=== PATIENT | male | born 1965 | race Caucasian/White ===

== ENCOUNTER 2020-04-29 07:43 | Outpatient (REF) | payer OTHER, SELFPAY | END 2020-04-29 07:44 | disposition home or self-care (01) | LOC: HO.LAB 07:43 | PROVIDERS: Visit Provider Internal Medicine | DX: Z20.828 Contact with and (suspected) exposure to other viral communicable diseases (principal) | CPT/HCPCS: C9803; U0003 ==

== ENCOUNTER → 2020-12-09 08:17 | Outpatient (BNVA) | payer OTHER, SELFPAY | PROVIDERS: PCP Internal Medicine Geriatric Medicine; Referring Provider Internal Medicine Geriatric Medicine; Visit Provider Surgery | DX: K64.5 Perianal venous thrombosis (principal) | CPT/HCPCS: 46600 ==

== ENCOUNTER 2021-05-24 11:37 | Outpatient (REF) | payer OTHER, SELFPAY ==
[2021-05-24 12:54] LABS: Influenza A PCR NEGATIVE (Negative); Influenza B PCR NEGATIVE (Negative); Resp Syncy Virus RNA Qual PCR NEGATIVE (Negative); SARS COV2 PCR INHOUSE NEGATIVE (Negative)
== END 2021-05-24 11:38 | disposition home or self-care (01) ==
LOC: HO.LNP 11:37
PROVIDERS: Visit Provider Physician Assistant
DX: Z20.822 Contact with and (suspected) exposure to COVID-19 (principal); J06.9 Acute upper respiratory infection, unspecified
CPT/HCPCS: 0241U

== ENCOUNTER 2021-08-28 09:14 | Outpatient (REF) | payer OTHER, SELFPAY ==
[2021-08-28 11:24] LABS: Hematocrit 42.9 % (42.0-52.0); Hemoglobin 14.3 g/dl (14.0-18.0); Mean Corpuscular HGB Conc 33.3 g/dl (31.0-36.0); Mean Corpuscular Volume 89.9 fL (80.0-98.0); Platelet Count 239 X10*3/uL (160-400); Red Blood Count 4.77 X10*6/uL (4.60-5.80); Red Cell Distribution Width 13.1 % (11.0-16.0)
[2021-08-28 11:34] LABS: Estimated Average Glucose 128 mg/dL; Hemoglobin A1c % 6.1 %
[2021-08-28 11:45] LABS: Alanine Aminotransferase 34 U/L (0-40); Albumin Level 4.5 g/dL (3.5-5.0); Alkaline Phosphatase 75 U/L (39-117); Anion Gap 13 (12-20); Aspartate Amino Transferase 25 U/L (5-37); Bilirubin Direct 0.3 mg/dL (0.0-0.5); Bilirubin Total 0.7 mg/dL (0.0-1.0); Blood Urea Nitrogen 16 mg/dL (9-16); Calcium 9.5 mg/dL (8.4-10.2); Carbon Dioxide 25 mmol/L (22-29); Chloride 108 mmol/L (96-108); Cholesterol 178 mg/dL; Estimated Glomerular Filt Rate > 60; Glucose Random 117 mg/dL (60-115); HDL Cholesterol 53 mg/dL; LDL Cholesterol Calculated 108 mg/dl; Potassium 4.2 mmol/L (3.3-5.1); Sodium 142 mmol/L (135-145); Total Protein 7.2 g/dL (6.5-8.0); Triglycerides 87 mg/dL
[2021-08-28 12:15] LABS: Prostate Specific Antigen 0.32 ng/mL (<0.05-4.0)
== END 2021-08-28 09:15 | disposition home or self-care (01) ==
LOC: HO.HMGCLDS 09:14
PROVIDERS: Visit Provider Internal Medicine Geriatric Medicine
DX: Z12.5 Encounter for screening for malignant neoplasm of prostate (principal); Z13.1 Encounter for screening for diabetes mellitus; Z13.220 Encounter for screening for lipoid disorders
CPT/HCPCS: 36415; 80048; 80061; 80076; 83036; 84153; 85027

== ENCOUNTER 2022-12-21 09:52 | Outpatient (REF) | payer OTHER, SELFPAY ==
[2022-12-21 11:22] LABS: MANUAL DIFF FLAG NO
[2022-12-21 11:31] LABS: Basophils Absolute Auto 0.1 X10*3/uL (0.0-0.2); Basophils Percent Auto 0.6 % (0-2); Eosinophils Absolute Auto 0.2 X10*3/uL (0.0-0.4); Eosinophils Percent Auto 1.8 % (0-4); Hematocrit 44.1 % (42.0-52.0); Hemoglobin 14.8 g/dl (14.0-18.0); Imm Gran Abs Auto 0.03 X10*3/uL (0.00-0.03); Imm Gran Pct Auto 0.3 % (0.0-0.4); Lymphocytes Absolute Auto 2.7 X10*3/uL (1.2-4.9); Lymphocytes Percent Auto 30.4 % (20-40); Mean Corpuscular HGB Conc 33.6 g/dl (31.0-36.0); Mean Corpuscular Volume 89.5 fL (80.0-98.0); Mean Platelet Volume 9.2 fL (9.4-12.4); Monocytes Absolute Auto 0.7 X10*3/uL (0.1-1.2); Monocytes Percent Auto 7.7 % (2-11); Neutrophils Absolute Auto 5.2 x10*3/uL (2.0-8.3); Neutrophils Percent Auto 59.2 % (45-73); Platelet Count 225 X10*3/uL (160-400); Red Blood Count 4.93 X10*6/uL (4.60-5.80); Red Cell Distribution Width 12.9 % (11.0-16.0); White Blood Count 8.7 X10*3/uL (4.8-10.8)
[2022-12-21 12:31] LABS: Alanine Aminotransferase 21 U/L (0-40); Albumin Level 4.4 g/dL (3.5-5.0); Alkaline Phosphatase 83 U/L (39-117); Anion Gap 14 (12-20); Aspartate Amino Transferase 18 U/L (5-37); Bilirubin Total 0.9 mg/dL (0.0-1.0); Blood Urea Nitrogen 14 mg/dL (9-16); Calcium 9.5 mg/dL (8.4-10.2); Carbon Dioxide 24 mmol/L (22-29); Chloride 107 mmol/L (96-108); Cholesterol 194 mg/dL; Estimated Glomerular Filt Rate > 60; Glucose Random 107 mg/dL (60-115); HDL Cholesterol 61 mg/dL; LDL Cholesterol Calculated 117 mg/dl; Potassium 4.1 mmol/L (3.3-5.1); Sodium 141 mmol/L (135-145); Total Protein 7.3 g/dL (6.5-8.0); Triglycerides 84 mg/dL
[2022-12-21 12:40] LABS: Prostate Specific Antigen 0.37 ng/mL (<0.05-4.0)
== END 2022-12-21 09:53 | disposition home or self-care (01) ==
LOC: HO.HHCL 09:52
PROVIDERS: Visit Provider Internal Medicine Geriatric Medicine
DX: Z00.00 Encounter for general adult medical examination without abnormal findings (principal); Z12.5 Encounter for screening for malignant neoplasm of prostate; Z13.1 Encounter for screening for diabetes mellitus; Z13.220 Encounter for screening for lipoid disorders
CPT/HCPCS: 36415; 80053; 80061; 84153; 85025

== ENCOUNTER 2023-07-22 08:55 | Outpatient (AMB) | payer OTHER, SELFPAY ==
[2023-07-22 08:56] VITALS: BP 118/80; PULSE 51; TEMP 36.7; O2SAT 98; BMI 31.1
--- NOTE | 2023-07-22 08:56 | MHC.OFFWIV ---
Intake Vital Signs 07/22/23 08:56 Height 5 ft 6 in Weight 193 lb BMI 31.1 BP 118/80 Blood Pressure Location Rt brachial Position Sitting Pulse 51 Pulse Source Pulse Oximeter Temp 98.0 F Temp Source Oral Pulse Oximetry (%) 98 Intake Visit Reasons: EST/sinus pressure X 3 days Intake Note: Pt is her today c/o sinus congestion and pressure x3 days Patient Tobacco Use Status: Never used Tobacco Allergies No Known Allergies [No Known Allergies*] Allergy (Verified 07/22/23 08:58) Do you need a note to return to daycare/school/sports/work: Yes HPI EST/sinus pressure X 3 days HPI Details Patient is a 58-year-old male who comes to the walk-in clinic complaining nasal congestion, sore throat and starting to develop sinus pressure for the last 3 days. He reports COVID testing was negative. No report of fever chills, headache or dizziness or vertigo, weakness, myalgias or malaise, nausea vomiting or diarrhea, ear pain or other significant associated symptoms PFSH Medical History Thrombosed external hemorrhoids Social History Alcohol intake: never Patient Tobacco Use Status: Never used Tobacco Review of Systems Const All systems reviewed & are unremarkable except as noted in HPI and below Physical Exam Vital Signs: Last Vital Signs Temp 98.0 F 07/22/23 08:56 Pulse 51 07/22/23 08:56 BP 118/80 07/22/23 08:56 Pulse Ox 98 07/22/23 08:56 BMI result Body Mass Index 31.1 Const General: cooperative, healthy appearing, comfortable, alert, awake, Physically active and well groomed; No anxious, diaphoretic, ill appearing, intoxicated appearing, poor hygiene or tired appearing Nutritional Appearance: average body habitus Limitations: no limitations HEENT Head: Yes normal to inspection, Yes normocephalic and Yes atraumatic Ears: hearing grossly normal bilaterally, external ears normal, TM's normal bilaterally and EAC's normal General nose exam: Normal external nose present, Normal septum present, Abnormal mucous membranes and turbinates present and Nasal discharge present Face and sinus: Yes normal facial exam and Yes face symmetric Mouth: Normal oral and palatal mucosa present, lip normal and tongue normal Throat: Yes posterior oropharynx normal, No peritonsillar mass, No postnasal drainage, No uvular edema and No cobblestoning Eyes General: appearance normal, both eyes and all related structures Neck Neck: Yes normal visual inspection, Yes full ROM, Yes no lymphadenopathy, Yes trachea midline, Yes supple and No anterior neck swelling Chest Chest palpation & inspection: normal palpation of entire chest wall Resp Effort & Inspection: normal respiratory effort Cardio Rate: regular rate Skin Other: Good color, warm and dry Psych Appearance: grossly normal Mental Status: mental status grossly normal Speech and movement: Normal speech and movement present Affect: normal affect Attitude: cooperative Thought process: Normal thought process present Insight: Good insight present (Psych) Judgement: Good judgement present (Psych) Assessment & Plan Assessment & Plan (1) URI (upper respiratory infection): Code(s): J06.9 - Acute upper respiratory infection, unspecified Qualifiers: URI type: unspecified viral URI Qualified Code(s): J06.9 - Acute upper respiratory infection, unspecified Plan: Patient 3 days into viral upper respiratory infection, nasal congestion is improving, as is postnasal drip and sore throat. Respiratory swab pending to rule out flu COVID and RSV, although home COVID test was negative. He is starting to feel some sinus pressure developing however, and apparently does have a history of bacterial sinusitis, so I wrote him for a course of azithromycin per jis requestm to take in case symptoms start to worsen, or do not improve. He knows to get adequate fluid intake and other supportive measures discussed. Note given to excuse from work yesterday. He will follow up if symptoms persist or worsen as needed Orders: Orders SARS-CoV2/FLU/RSV 07/22/23 R05.9 - Cough, unspecified Medications: New azithromycin take 500 mg today (day 1), then 250 mg for 4 days (days 2-5) PO 6 tabs 0RF Coding Level of Care Code Est Pt Level 4 (65903) Diagnoses Viral upper respiratory tract infection J06.9 URI type: unspecified viral URI
== END 2023-07-22 12:56 | disposition home or self-care (01) ==
PROVIDERS: Visit Provider Physician Assistant Medical
DX: J06.9 Acute upper respiratory infection, unspecified (principal)
CPT/HCPCS: 99051; 99214

== ENCOUNTER 2023-07-22 09:24 | Outpatient (REF) | payer OTHER, SELFPAY ==
[2023-07-22 12:38] LABS: Influenza A PCR NEGATIVE (Negative); Influenza B PCR NEGATIVE (Negative); Resp Syncy Virus RNA Qual PCR NEGATIVE (Negative); SARS COV2 PCR INHOUSE NEGATIVE (Negative)
== END 2023-07-22 09:25 | disposition home or self-care (01) ==
LOC: HO.LAB 09:24
PROVIDERS: Visit Provider Physician Assistant Medical
DX: Z11.52 Encounter for screening for COVID-19 (principal); Z20.822 Contact with and (suspected) exposure to COVID-19; R05.9 Cough, unspecified
CPT/HCPCS: 0241U

== ENCOUNTER 2023-12-05 10:17 | Outpatient (REF) | payer OTHER, SELFPAY ==
[2023-12-05 11:43] LABS: MANUAL DIFF FLAG NO
[2023-12-05 11:58] LABS: Basophils Absolute Auto 0.1 X10*3/uL (0.0-0.2); Basophils Percent Auto 0.8 % (0-2); Eosinophils Absolute Auto 0.1 X10*3/uL (0.0-0.4); Eosinophils Percent Auto 1.4 % (0-4); Hemoglobin 14.2 g/dl (14.0-18.0); Imm Gran Abs Auto 0.02 X10*3/uL (0.00-0.03); Imm Gran Pct Auto 0.3 % (0.0-0.4); Lymphocytes Percent Auto 31.2 % (20-40); Mean Corpuscular HGB Conc 34.6 g/dl (31.0-36.0); Mean Corpuscular Hemoglobin 30.8 pg (27.0-33.0); Mean Corpuscular Volume 88.9 fL (80.0-98.0); Mean Platelet Volume 9.3 fL (9.4-12.4); Monocytes Absolute Auto 0.5 X10*3/uL (0.1-1.2); Monocytes Percent Auto 7.7 % (2-11); Neutrophils Absolute Auto 3.8 x10*3/uL (2.0-8.3); Neutrophils Percent Auto 58.6 % (45-73); Platelet Count 220 X10*3/uL (160-400); Red Blood Count 4.61 X10*6/uL (4.60-5.80); Red Cell Distribution Width 12.8 % (11.0-16.0); White Blood Count 6.5 X10*3/uL (4.8-10.8)
[2023-12-05 12:36] LABS: Alanine Aminotransferase 22 U/L (0-40); Albumin Level 4.3 g/dL (3.5-5.0); Alkaline Phosphatase 73 U/L (39-117); Anion Gap 11 (12-20); Aspartate Amino Transferase 22 U/L (5-37); Bilirubin Total 0.7 mg/dL (0.0-1.0); Blood Urea Nitrogen 15 mg/dL (9-16); Carbon Dioxide 26 mmol/L (22-29); Chloride 109 mmol/L (96-108); Cholesterol 180 mg/dL (<200); Estimated Glomerular Filt Rate > 60; Glucose Random 104 mg/dL (60-115); HDL Cholesterol 52 mg/dL (>40); LDL Cholesterol Calculated 112 mg/dL (<100); Potassium 3.8 mmol/L (3.3-5.1); Sodium 142 mmol/L (135-145); Triglycerides 83 mg/dL (<150); ~HepC Num1 0.07 S/CO (0.00-0.79); ~Hepatitis C Antibody Nonreactive (Nonreactive)
[2023-12-05 12:37] LABS: Prostate Specific Antigen 0.34 ng/mL (<0.05-4.0)
== END 2023-12-05 10:18 | disposition home or self-care (01) ==
LOC: HO.HHCL 10:17
PROVIDERS: Visit Provider Internal Medicine Geriatric Medicine
DX: Z00.00 Encounter for general adult medical examination without abnormal findings (principal); Z13.1 Encounter for screening for diabetes mellitus; Z13.220 Encounter for screening for lipoid disorders; Z12.5 Encounter for screening for malignant neoplasm of prostate; Z11.59 Encounter for screening for other viral diseases
CPT/HCPCS: 36415; 80053; 80061; 84153; 85025; 86803

== ENCOUNTER 2023-12-25 07:57 | Outpatient (AMB) | payer OTHER, SELFPAY ==
--- NOTE | 2023-12-25 07:59 | MHC.OFFWIV ---
Intake Vital Signs 12/25/23 08:00 Height 5 ft 6 in Weight 192 lb BMI 31.0 BP 134/86 Blood Pressure Location Rt brachial Position Sitting Pulse 64 Pulse Source Pulse Oximeter Temp 98.7 F Temp Source Oral Pulse Oximetry (%) 98 Oxygen Delivery Method Room Air Intake Visit Reasons: EP Lower Back pain Intake Note: pt here c/o lower back pain. Started Monday Patient Tobacco Use Status: Never used Tobacco Allergies No Known Allergies [No Known Allergies*] Allergy (Verified 12/25/23 08:00) Do you need a note to return to daycare/school/sports/work: Yes HPI HPI Comments History of Present Illness Details Patient presents to the walk-in today for sick visit Reports lower back pain for last 3 days Injured back when moving from the couch, pain has persisted Has taken Tylenol, ibuprofen, cyclobenzaprine and applied lidocaine patches all without improvement his pain Denies radiation of the pain down either lower extremity Denies numbness, weakness, tingling of either lower extremity Pain is worse with movement and in the morning Exacerbated by movement, forward flexion and twisting [facility] Medical History Thrombosed external hemorrhoids Social History Alcohol intake: never Patient Tobacco Use Status: Never used Tobacco Review of Systems Const All systems reviewed & are unremarkable except as noted in HPI and below Physical Exam Vital Signs: Last Vital Signs Temp 98.7 F 12/25/23 08:00 Pulse 64 12/25/23 08:00 BP 134/86 12/25/23 08:00 Pulse Ox 98 12/25/23 08:00 Oxygen Delivery Method Room Air 12/25/23 08:00 BMI result Body Mass Index 31.0 General: awake, alert, oriented. Answers questions appropriately. Fully engaged in examination. Skin: warm, dry, intact HEENT: Normocephalic. Hearing intact. Cardiac: External chest normal in appearance. Respiratory: No cough, audible wheezing or stridor. Abdomen: without gross distension. MS: No obvious swelling or deformities. Able to stand on bilateral tiptoes and bilateral heels.? Able to transition from sit to stand unassisted. Ambulates with bilaterally normal heel strike and toe off SLR negative bilaterally Facet loading positive bilaterally Tender to palpation midline lumbar vertebrae and lumbar paraspinal muscles Pain with forward flexion at 70 degrees, extension to 10 degrees Neurological: Oriented to person, place, time and situation. Thought process intact. No gait abnormalities appreciated. Psychiatric: Appropriate mood and affect. Good judgment and insight. Results Reviewed Results Reviewed: X-ray ordered and independently reviewed: No fracture. Age-related changes Assessment & Plan Assessment & Plan (1) Lower back pain: Code(s): M54.50 - Low back pain, unspecified Plan X-ray ordered and independently reviewed: No fracture. Age-related changes Methocarbamol 500 mg p.o. 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 No driving while taking this medication. Diclofenac 50 mg p.o. b.i.d. patient advised on cautions for use, do not take with any other nonsteroidal anti-inflammatory medications Patient declined IM Toradol Work note provided All questions and concerns were answered, patient agrees with the plan. Follow up with PCP or return here for any new or worsening symptoms Orders: Orders XR lumbar spine 4V min Today M54.50 - Low back pain, unspecified Medications: New methocarbamol no driving while taking this medication. may cause drowsiness. do not take with alcohol or other manager heart failure depressants. 500 mg PO TID 30 tabs 0RF diclofenac potassium 50 mg PO BID 60 tabs 0RF Coding Level of Care Code Est Pt Level 4 (38734) Diagnoses Lower back pain M54.50
[2023-12-25 08:00] VITALS: BP 134/86; PULSE 64; TEMP 37.1; O2SAT 98; BMI 31.0
== END 2023-12-25 08:29 | disposition home or self-care (01) ==
PROVIDERS: Visit Provider Registered Nurse Emergency
DX: M54.50 Low back pain, unspecified (principal)
CPT/HCPCS: 99214

== ENCOUNTER 2023-12-25 08:20 | Outpatient (REF) | payer OTHER, SELFPAY ==
--- NOTE | ~2023-12-25 | XR_ITS ---
EXAMINATION: XR LUMBOSACRAL SPINE WITH OBLIQUES CLINICAL INFORMATION: Low back pain, unspecified. COMPARISON: None available. TECHNIQUE: AP, both oblique, and lateral views of the lumbar spine. Lateral view of the lumbosacral junction. FINDINGS: Grade 1 retrolisthesis of L5 on S1 with associated severe degenerative disc disease with near complete loss of the disc space height and vertebral endplate sclerosis and spurring. Slight straightening of the normal lumbar lordosis. Mild degenerative disc disease at L4-L5. Mild vertebral spondylosis with preservation of disc space height at L3-L4. Upper lumbar spine unremarkable. Mild vertebral spurring in lower thoracic spine. Moderate facet arthropathy in mid and lower lumbar spine. Sacroiliac joints bilaterally intact. No abnormal paraspinal soft tissue changes. XR/XR lumbar spine 4V min IMPRESSION: * Grade 1 retrolisthesis of L5 on S1 with associated severe degenerative disc disease. * Mild degenerative disc disease at L4-L5. * Moderate facet arthropathy in mid and lower lumbar spine.
== END 2023-12-25 08:21 | disposition home or self-care (01) ==
LOC: HO.HMGCLDS 08:20
PROVIDERS: PCP Internal Medicine Geriatric Medicine; Visit Provider Registered Nurse Emergency
DX: M54.50 Low back pain, unspecified (principal)
CPT/HCPCS: 72110

== ENCOUNTER 2023-12-29 07:41 | Outpatient (REF) | payer OTHER, SELFPAY ==
--- NOTE | ~2023-12-29 | MR_ITS ---
EXAMINATION: MR LUMBAR SPINE WITHOUT CONTRAST CLINICAL INFORMATION: Acute low back pain, difficulty walking COMPARISON: None available. TECHNIQUE: MRI of the lumbar spine was obtained using routine sequences without contrast. FINDINGS: There are 5 nonrib-bearing lumbar-type vertebrae. Rudimentary disc at S1-2. Mild retrolisthesis at L5-S1. The vertebral body heights are preserved. Multilevel disc desiccation with severe disc height loss at L5-S1. Subacute endplate changes at L5-S1. Multilevel endplate osteophytosis. The visualized spinal cord is normal in caliber. No abnormal cord signal. The conus medullaris terminates at L1. T12-L1: No significant spinal canal or neural foraminal narrowing. L1-2: No significant spinal canal or neural foraminal narrowing. L2-3: No significant spinal canal or neural foraminal narrowing. L3-4: Bilateral facet arthrosis. No significant spinal canal or neural foraminal narrowing. Small right perineural cyst. L4-5: Diffuse disc bulge with superimposed annular fissure. Bilateral facet arthrosis. No significant spinal canal stenosis. Mild bilateral neural foraminal narrowing with the disc abutting the exiting L4 nerve roots bilaterally. L5-S1: Diffuse disc bulge with superimposed shallow left paracentral disc protrusion. No significant spinal canal stenosis. Mild to moderate right greater than left neural foraminal narrowing with the disc abutting the exiting L5 nerve roots. The paravertebral soft tissues are unremarkable. MR/MR lumbar spine wo con IMPRESSION: -Mild retrolisthesis at L5-S1 with severe disc height loss and subacute endplate changes. -No significant spinal canal stenosis. -Mild to moderate bilateral neural foraminal narrowing at L4-L5 and L5-S1 with the disc abutting the exiting L4 and L5 nerve roots. -Annular fissure at L4-5.
== END 2023-12-29 07:42 | disposition home or self-care (01) ==
LOC: HO.MRI 07:41
PROVIDERS: PCP Internal Medicine Geriatric Medicine; Visit Provider Family Medicine
DX: M54.50 Low back pain, unspecified (principal)
CPT/HCPCS: 72148

== ENCOUNTER 2024-01-12 09:33 | Outpatient (AMB) | payer OTHER, SELFPAY ==
--- NOTE | 2024-01-12 09:37 | A.SPINEOV_ITS ---
Intake Visit Reasons: LBP Intake Note: Mr. Kathleen is here today c/o low back pain that radiates to the legs. 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 Mr. Kathleen is a 50-year-old male who came by to the office today for evaluation back pain. A few weeks back he was getting out of seat and immediately felt a pull or a pop in his back and was basically incapacitated. No pain radiating down the legs. No cauda equina symptoms. It is bit better than what it was. He has been on methocarbamol and diclofenac. He underwent an MRI showing degenerative disc at L5-S1 and came in to see me today for evaluation. The pain is aggravated with sitting but he is okay lying down and standing up. Walking is okay as well. PMH: He is otherwise healthy Social hx: Does not smoke, drink use any recreational drugs Medications: Methocarbamol and diclofenac Allergies: None Physical exam: Patient is awake alert oriented x3, no acute distress he does have some give-way weakness in his right iliopsoas but otherwise no focal strength loss. Reflexes intact the patella. Imaging review: Lumbar MRIs has degenerative disc at L5-S1. There are Modic endplate changes at L5. No signs of an acute disc rupture. There is moderate foraminal stenosis bilaterally. Impression: 58-year-old male presents with 2 weeks of back pain that started when he was getting up out of a seated position and he felt something polar pop. He has no radicular pains or cauda equina symptoms. His imaging shows degenerative disc at L5-S1. That represents more of a chronic situation in his low back that is likely related to the heavy lifting he does at his job and it previous careers. The acute situation he is dealing with sounds more like a muscular strain. It has already started to get better although it is not significantly improved I think some physical therapy will help. He is starting with that today. Anti-inflammatories and Tylenol her obviously very helpful as well and maybe a muscle relaxer from his PCP. Thank you for allowing us to care for your patient. The total time spent with this visit with this patient was 45 minutes reviewing history, physical exam, lumbar imaging review, and implementation of treatment plan or further diagnostic testing Brian Breen MD,PhD [facility] Coding Level of Care Code New Pt Level 4 (85655) Diagnoses Lower back pain M54.50
== END 2024-01-12 10:24 | disposition home or self-care (01) ==
PROVIDERS: PCP Internal Medicine Geriatric Medicine; Visit Provider Physician Assistant
DX: M54.50 Low back pain, unspecified (principal)
CPT/HCPCS: 99204

== ENCOUNTER → 2024-01-12 09:33 | Outpatient (BNVA) | payer OTHER, SELFPAY | PROVIDERS: PCP Internal Medicine Geriatric Medicine; Visit Provider Physician Assistant ==

== ENCOUNTER 2024-02-07 16:00 | Outpatient (RCR) | payer OTHER, SELFPAY | END 2024-03-18 09:35 | disposition home or self-care (01) | LOC: HO.PTCHIC 16:00 | PROVIDERS: PCP Internal Medicine Geriatric Medicine; Visit Provider Family Medicine | DX: M54.50 Low back pain, unspecified (principal) | CPT/HCPCS: 97110; 97140; 97161 ==

== ENCOUNTER 2024-02-28 13:06 | Outpatient (AMB) | payer OTHER, SELFPAY ==
[2024-02-28 13:20] VITALS: BP 157/85; PULSE 71; O2SAT 97; BMI 32.4
--- NOTE | 2024-02-28 13:20 | A.OFFVIS_ITS ---
Vital Signs 02/28/24 13:20 Height 5 ft 6 in Weight 201 lb BMI 32.4 BP 157/85 H Blood Pressure Location Rt brachial Position Sitting Pulse 71 Pulse Source Pulse Oximeter Pulse Oximetry (%) 97 Oxygen Delivery Method Room Air Intake Visit Reasons: Chronic Left Sided Low Back Pain Allergies No Known Allergies [No Known Allergies*] Allergy (Verified 01/12/24 09:43) Medication List - Last Reconciled 02/28/24 by Betsy Nguyen atorvastatin 20 mg PO DAILY diclofenac potassium 50 mg PO BID methocarbamol 500 mg PO TID HPI Comments Details: Rocco is a very pleasant 58-year-old male who presents to the office today, accompanied by his , for evaluation management of his lower back pain Has been suffering with this pain for approximately 8 weeks, started after injury while moving furniture Initially evaluated at the walk-in center, x-ray was performed patient prescribed NSAIDs and muscle relaxers. He was then evaluated by his primary care doctor, MRI was performed and patient started physical therapy He endorses minimal, short-term improvement of his pain with medications but no improvement after physical therapy Endorses midline lower back pain with intermittent radiation down both lower extremities, right worse than left. Pain is exacerbated by bending, sitting, walking, standing Endorses tingling the lower extremities and shooting pain Denies red flag symptoms including new loss of bowel, bladder or saddle anesthesia Recent x-ray and MRI reviewed, results as per below Pain today is rated as a 6/10, constant and worse in the mornings In terms of muscle damage condition is described as pulsing, throbbing, pounding, cramping, pinching, stabbing, sharp, tingling Pain is negatively impacting patient's sleep, ability for activities of daily living, ability to function normally, work. He has been out of work since the injury. Denies current use of anticoagulants. Denies implantable devices, pacemaker defibrillator Denies alcohol or illicit substance use [facility] Medical History Thrombosed external hemorrhoids Social History Alcohol intake: never Patient Tobacco Use Status: Never used Tobacco Review of Systems Const All systems reviewed & are unremarkable except as noted in HPI and below Physical Exam Vital Signs: Last Vital Signs Pulse 71 02/28/24 13:20 BP 157/85 H 02/28/24 13:20 Pulse Ox 97 02/28/24 13:20 Oxygen Delivery Method Room Air 02/28/24 13:20 BMI result Body Mass Index 32.4 General: awake, alert, oriented. Answers questions appropriately. Fully engaged in examination. Skin: warm, dry, intact HEENT: Normocephalic. Hearing intact. Cardiac: External chest normal in appearance. Respiratory: No cough, audible wheezing or stridor. Abdomen: without gross distension. MS: No obvious swelling or deformities. Able to stand on bilateral tiptoes and bilateral heels.? Able to transition from sit to stand unassisted. Ambulates with bilaterally normal heel strike and toe off SLR with dorsiflexion positive bilaterally, left worse than right Facet loading positive bilaterally Tender to palpation midline lumbar vertebrae and lumbar paraspinal muscles Pain with forward flexion at 50 0 degrees, extension to 10 degrees Nontender over bilateral PSIS Neurological: Oriented to person, place, time and situation. Thought process intact. No gait abnormalities appreciated. Psychiatric: Appropriate mood and affect. Good judgment and insight. Results Reviewed Results Reviewed: 12/29/23 MRI of the lumbar spine FINDINGS: There are 5 nonrib-bearing lumbar-type vertebrae. Rudimentary disc at S1-2. Mild retrolisthesis at L5-S1. The vertebral body heights are preserved. Multilevel disc desiccation with severe disc height loss at L5-S1. Subacute endplate changes at L5-S1. Multilevel endplate osteophytosis. The visualized spinal cord is normal in caliber. No abnormal cord signal. The conus medullaris terminates at L1. T12-L1: No significant spinal canal or neural foraminal narrowing. L1-2: No significant spinal canal or neural foraminal narrowing. L2-3: No significant spinal canal or neural foraminal narrowing. L3-4: Bilateral facet arthrosis. No significant spinal canal or neural foraminal narrowing. Small right perineural cyst. L4-5: Diffuse disc bulge with superimposed annular fissure. Bilateral facet arthrosis. No significant spinal canal stenosis. Mild bilateral neural foraminal narrowing with the disc abutting the exiting L4 nerve roots bilaterally. L5-S1: Diffuse disc bulge with superimposed shallow left paracentral disc protrusion. No significant spinal canal stenosis. Mild to moderate right greater than left neural foraminal narrowing with the disc abutting the exiting L5 nerve roots. The paravertebral soft tissues are unremarkable. MR/MR lumbar spine wo con IMPRESSION: -Mild retrolisthesis at L5-S1 with severe disc height loss and subacute endplate changes. -No significant spinal canal stenosis. -Mild to moderate bilateral neural foraminal narrowing at L4-L5 and L5-S1 with the disc abutting the exiting L4 and L5 nerve roots. -Annular fissure at L4-5. 12/25/23 IMPRESSION: * Grade 1 retrolisthesis of L5 on S1 with associated severe degenerative disc disease. * Mild degenerative disc disease at L4-L5. * Moderate facet arthropathy in mid and lower lumbar spine. Assessment & Plan Assessment & Plan (1) Lower back pain: Code(s): M54.50 - Low back pain, unspecified Category: Medical (2) Lumbar radiculopathy: Code(s): M54.16 - Radiculopathy, lumbar region Category: Medical Plan Continue with Celebrex as prescribed by PCP Continue with Methocarbamol 500 mg p.o. 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 No driving while taking this medication. Discontinue cyclobenzaprine prior to starting this medication. Patient has exhausted conservative therapy including nonsteroidal anti- inflammatory medications, muscle relaxers, physical therapy all without improvement of symptoms Discussed at length diagnosis in options for treatment. We will schedule for fluoroscopy guided bilateral L4-5 transforaminal epidural steroid injection with local anesthetic. All questions and concerns were answered, patient agrees with the plan. Follow up after injections, sooner if needed Medications: Changed From methocarbamol no driving while taking this medication. may cause drowsiness. do not take with alcohol or other polisher hand depressants. 500 mg PO TID 30 tabs 0RF To methocarbamol Discontinue use of cyclobenzaprine prior to taking this medication no driving while taking this medication. may cause drowsiness. do not take with alcohol or other polisher hand depressants. 500 mg PO TID PRN 90 tabs 1RF Spasm Coding Level of Care Code New Pt Level 4 (59869) Complex EM visit Add On G2211 Diagnoses Lower back pain M54.50 Lumbar radiculopathy M54.16
== END 2024-02-28 13:48 | disposition home or self-care (01) ==
PROVIDERS: PCP Internal Medicine Geriatric Medicine; Referring Provider Internal Medicine Geriatric Medicine; Visit Provider Registered Nurse Emergency
DX: M54.50 Low back pain, unspecified (principal); M54.16 Radiculopathy, lumbar region
CPT/HCPCS: 99204

== ENCOUNTER → 2024-02-28 13:06 | Outpatient (BNVA) | payer OTHER, SELFPAY | PROVIDERS: PCP Internal Medicine Geriatric Medicine; Referring Provider Internal Medicine Geriatric Medicine; Visit Provider Registered Nurse Emergency ==

== ENCOUNTER 2024-04-09 06:13 | Outpatient (REF) | payer OTHER, SELFPAY | END 2024-04-09 06:14 | disposition home or self-care (01) | LOC: CF 06:13 | PROVIDERS: Visit Provider Anesthesiology | DX: M54.16 Radiculopathy, lumbar region (principal); M54.50 Low back pain, unspecified | CPT/HCPCS: 64483; J2003; J3301 ==

== ENCOUNTER 2024-04-09 10:51 | Outpatient (AMB) | payer OTHER, SELFPAY ==
--- NOTE | 2024-04-09 11:38 | MHC.OFFVIS ---
Vital Signs 04/09/24 12:17 04/09/24 12:32 Height 5 ft 6 in 5 ft 6 in Weight 201 lb 201 lb BMI 32.4 32.4 BP 145/85 H 125/78 Blood Pressure Location Rt radial Lt brachial Position Sitting Sitting Respiration 16 18 Pulse 72 65 Pulse Source Pulse Oximeter Pulse Oximeter Pulse Oximetry (%) 99 99 Oxygen Delivery Method Room Air Room Air Comment pre-op post-op Intake Visit Reasons: BILATERAL L4, L5 TFESI Allergies No Known Allergies [No Known Allergies*] Allergy (Verified 04/09/24 12:33) [facility] Medical History Thrombosed external hemorrhoids Social History Alcohol intake: never Patient Tobacco Use Status: Never used Tobacco Physical Exam Vital Signs: Last Vital Signs Pulse 65 04/09/24 12:32 Resp 18 04/09/24 12:32 BP 125/78 04/09/24 12:32 Pulse Ox 99 04/09/24 12:32 Oxygen Delivery Method Room Air 04/09/24 12:32 BMI result Body Mass Index 32.4 Assessment & Plan Assessment & Plan (1) Lower back pain: Code(s): M54.50 - Low back pain, unspecified Category: Medical (2) Lumbar radiculopathy: Code(s): M54.16 - Radiculopathy, lumbar region Category: Medical Plan: Transforaminal epidural steroid injection bilateral L4-5. The patient came to the operating room after obtaining informed consent. The risk of the procedure were delineated as risk of bleeding infection peripheral nerve damage epidural hematoma spinal cord damage epidural abscess and headache. The patient was positioned on the operating table prone with pillow under the abdomen. Time-out was performed delineating correct side and site of the procedure minimally that of the patient need of antibiotics risk of fire the patient participated in time-out procedure. The patient's lower back was prepped with ChloraPrep and draped with sterile utility towels. C-arm was brought over the operating field and sq picture of L4 vertebra was delineated on the screen. C-arm was tilted 30 degrees to the right to demonstrate most prominent image of the pedicle of L4 on the right. 3 mm below the lowest point of the pedicle projection to the skin was chosen starting point of the injection. 22 gauge 5 in needle was inserted through the skin and started to advance to foramina on anterior posterior and lateral as well oblique views. The needle was advanced in tunnel vision fashion. One on lateral view the needle entered the most posterior and superior portion of the foramen injection of the contrast was performed delineating anterior epidural space of the contrast. After that treatment solution containing 3 mL of preservative-free lidocaine 1% mixed with Kenalog 40 mg was injected into the needle. Upon completion of the injection the procedure was repeated on the left side in mirroring fashion. Upon completion of the injections sterile Band-Aids were applied. The patient tolerated the procedure well he was awakened and taken out of the injection site to the recovery room where he recovered uneventfully. Plan Continue with Celebrex as prescribed by PCP Continue with Methocarbamol 500 mg p.o. 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 No driving while taking this medication. Discontinue cyclobenzaprine prior to starting this medication. Patient has exhausted conservative therapy including nonsteroidal anti-inflammatory medications, muscle relaxers, physical therapy all without improvement of symptoms Discussed at length diagnosis in options for treatment. We will schedule for fluoroscopy guided bilateral L4-5 transforaminal epidural steroid injection with local anesthetic. All questions and concerns were answered, patient agrees with the plan. Follow up after injections, sooner if needed Orders: Orders FL guidance in treatment room Today M54.16 - Radiculopathy, lumbar region Coding Level of Care Code Procedure Only Diagnoses Lower back pain M54.50 Lumbar radiculopathy M54.16
[2024-04-09 12:17] VITALS: BP 145/85; PULSE 72; RESP 16; O2SAT 99; BMI 32.4
[2024-04-09 12:32] VITALS: BP 125/78; PULSE 65; RESP 18; O2SAT 99; BMI 32.4
== END 2024-04-09 13:50 | disposition home or self-care (01) ==
LOC: HO.PMCPRC 10:51
PROVIDERS: PCP Internal Medicine Geriatric Medicine; Visit Provider Anesthesiology
DX: M54.16 Radiculopathy, lumbar region (principal)
CPT/HCPCS: 64483

== ENCOUNTER 2024-05-08 10:42 | Outpatient (AMB) | payer OTHER, SELFPAY ==
--- NOTE | 2024-05-08 10:52 | A.OFFVIS_ITS ---
Vital Signs 05/08/24 10:53 Height 5 ft 6 in Weight 200 lb BMI 32.3 BP 150/82 H Blood Pressure Location Lt brachial Position Sitting Respiration 18 Pulse 76 Pulse Source Pulse Oximeter Pulse Oximetry (%) 100 Oxygen Delivery Method Room Air Comment post-op Intake Visit Reasons: BILATERAL L4, L5 TFESI/04/09/24 Allergies No Known Allergies [No Known Allergies*] Allergy (Verified 04/09/24 12:33) HPI Comments Details: Patient presents back to the office today for follow-up, 1 month status post bilateral L4-5 transforaminal epidural steroid injection He reports 100% improvement in his radicular pain. 50% improvement in axial back pain. Continues with midline lower back pain without radiation down either lower extremity. Worse with sitting, transitioning from sit to stand, twisting, bending Has been taking methocarbamol 500 mg as needed with some improvement. Denies red flag symptoms including new loss of bowel, bladder or saddle anesthesia Pain today is rated as a 7/10, constant, axial back pain Prior: Rocco is a very pleasant 58-year-old male who presents to the office today, accompanied by his , for evaluation management of his lower back pain Has been suffering with this pain for approximately 8 weeks, started after injury while moving furniture Initially evaluated at the walk-in center, x-ray was performed patient prescribed NSAIDs and muscle relaxers. He was then evaluated by his primary care doctor, MRI was performed and patient started physical therapy He endorses minimal, short-term improvement of his pain with medications but no improvement after physical therapy Endorses midline lower back pain with intermittent radiation down both lower extremities, right worse than left. Pain is exacerbated by bending, sitting, walking, standing Endorses tingling the lower extremities and shooting pain Denies red flag symptoms including new loss of bowel, bladder or saddle anesthesia Recent x-ray and MRI reviewed, results as per below Pain today is rated as a 6/10, constant and worse in the mornings In terms of muscle damage condition is described as pulsing, throbbing, pounding, cramping, pinching, stabbing, sharp, tingling Pain is negatively impacting patient's sleep, ability for activities of daily living, ability to function normally, work. He has been out of work since the injury. Denies current use of anticoagulants. Denies implantable devices, pacemaker defibrillator Denies alcohol or illicit substance use [facility] Medical History Thrombosed external hemorrhoids Social History Alcohol intake: never Patient Tobacco Use Status: Never used Tobacco Review of Systems Const All systems reviewed & are unremarkable except as noted in HPI and below Physical Exam Vital Signs: Last Vital Signs Pulse 76 05/08/24 10:53 Resp 18 05/08/24 10:53 BP 150/82 H 05/08/24 10:53 Pulse Ox 100 05/08/24 10:53 Oxygen Delivery Method Room Air 05/08/24 10:53 BMI result Body Mass Index 32.3 General: awake, alert, oriented. Answers questions appropriately. Fully engaged in examination. Skin: warm, dry, intact HEENT: Normocephalic. Hearing intact. Cardiac: External chest normal in appearance. Respiratory: No cough, audible wheezing or stridor. Abdomen: without gross distension. MS: No obvious swelling or deformities. Able to transition from sit to stand unassisted. Ambulates with bilaterally normal heel strike and toe off SLR negative Facet loading positive bilaterally Tender to palpation midline lumbar vertebrae and lumbar paraspinal muscles Nontender over bilateral PSIS Neurological: Oriented to person, place, time and situation. Thought process intact. No gait abnormalities appreciated. Psychiatric: Appropriate mood and affect. Good judgment and insight. Results Reviewed Results Reviewed: 12/29/23 MRI of the lumbar spine FINDINGS: There are 5 nonrib-bearing lumbar-type vertebrae. Rudimentary disc at S1-2. Mild retrolisthesis at L5-S1. The vertebral body heights are preserved. Multilevel disc desiccation with severe disc height loss at L5-S1. Subacute endplate changes at L5-S1. Multilevel endplate osteophytosis. The visualized spinal cord is normal in caliber. No abnormal cord signal. The conus medullaris terminates at L1. T12-L1: No significant spinal canal or neural foraminal narrowing. L1-2: No significant spinal canal or neural foraminal narrowing. L2-3: No significant spinal canal or neural foraminal narrowing. L3-4: Bilateral facet arthrosis. No significant spinal canal or neural foraminal narrowing. Small right perineural cyst. L4-5: Diffuse disc bulge with superimposed annular fissure. Bilateral facet arthrosis. No significant spinal canal stenosis. Mild bilateral neural foraminal narrowing with the disc abutting the exiting L4 nerve roots bilaterally. L5-S1: Diffuse disc bulge with superimposed shallow left paracentral disc protrusion. No significant spinal canal stenosis. Mild to moderate right greater than left neural foraminal narrowing with the disc abutting the exiting L5 nerve roots. The paravertebral soft tissues are unremarkable. MR/MR lumbar spine wo con IMPRESSION: -Mild retrolisthesis at L5-S1 with severe disc height loss and subacute endplate changes. -No significant spinal canal stenosis. -Mild to moderate bilateral neural foraminal narrowing at L4-L5 and L5-S1 with the disc abutting the exiting L4 and L5 nerve roots. -Annular fissure at L4-5. 12/25/23 IMPRESSION: * Grade 1 retrolisthesis of L5 on S1 with associated severe degenerative disc disease. * Mild degenerative disc disease at L4-L5. * Moderate facet arthropathy in mid and lower lumbar spine. Assessment & Plan Assessment & Plan (1) Lower back pain: Code(s): M54.50 - Low back pain, unspecified Category: Medical (2) Lumbar radiculopathy: Code(s): M54.16 - Radiculopathy, lumbar region Category: Medical Plan Patient presented back to the office today for follow-up, 1 month status post bilateral L4-5 transforaminal epidural steroid injection He reports 100% improvement radicular pain. 50% axial back pain for 3 weeks. Axial back pain persists despite conservative therapy including NSAIDs, muscle relaxers, physical therapy at home exercise program. Will increase methocarbamol 750 mg p.o. 3 times daily as needed. Patient advised on cautions for use Discussed options for treatment including diagnostic interventional testing, epidural steroid injections, peripheral nerve stimulation with Sprint, RFA and more permanent neuromodulation. Informational pamphlets provided. Will schedule for bilateral L4, maybe L3, maybe L5 sprint PNS trial with local anesthetic. Left side to start, right side will follow after 2 weeks. All questions and concerns were answered, patient agrees with the plan. Follow up after procedure, sooner if needed Medications: Changed From methocarbamol Discontinue use of cyclobenzaprine prior to taking this medication no driving while taking this medication. may cause drowsiness. 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 500 mg PO TID PRN 90 tabs 1RF Spasm To methocarbamol no driving while taking this medication. may cause drowsiness. 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 750 mg PO TID PRN 90 tabs 1RF Spasm Coding Level of Care Code Est Pt Level 3 (08871) Complex EM visit Add On G2211 Diagnoses Lower back pain M54.50 Lumbar radiculopathy M54.16
[2024-05-08 10:53] VITALS: BP 150/82; PULSE 76; RESP 18; O2SAT 100; BMI 32.3
== END 2024-05-08 11:25 | disposition home or self-care (01) ==
PROVIDERS: PCP Internal Medicine Geriatric Medicine; Visit Provider Registered Nurse Emergency
DX: M54.50 Low back pain, unspecified (principal); M54.16 Radiculopathy, lumbar region
CPT/HCPCS: 99213

== ENCOUNTER → 2024-05-08 10:42 | Outpatient (BNVA) | payer OTHER, SELFPAY | PROVIDERS: PCP Internal Medicine Geriatric Medicine; Visit Provider Registered Nurse Emergency ==

== ENCOUNTER 2024-05-15 09:25 | Outpatient (AMB) | payer OTHER, SELFPAY ==
[2024-05-15 10:24] VITALS: BP 160/90; PULSE 69; BMI 34.0
--- NOTE | 2024-05-15 10:24 | MHC.OFFVIS ---
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 No prior history of coronary disease or myocardial infarction or cardiomyopathy. He states he has been getting some sharp chest pains in the nipple area in the left side. Hence he is quite anxious about that if it could be cardiac related. However, he does not have any clear-cut exertional patterns. No other clear-cut symptoms like shortness of breath. Today's blood pressure is high but he states it is because of anxiety coming here. He is not on any blood pressure medications. [facility] Medical History Thrombosed external hemorrhoids Family History (Updated 05/15/24 @ 10:26 by Kari Kathleen CMA) Mother Diabetes Father Diabetes Stroke Pacemaker Social History Alcohol intake: never Patient Tobacco Use Status: Never used Tobacco Review of Systems Const Denies chills, Denies fatigue, Denies fever(s), Denies frequent falls, Denies weakness, Denies weight gain and Denies weight loss ENT Denies dizziness Card Denies chest pain, Denies leg edema, Denies lightheadedness, Denies palpitations, Denies dyspnea, Denies dyspnea on exertion and Denies orthopnea Resp Denies cough, Denies dyspnea and Denies dyspnea on exertion GI Denies bloating and Denies change in bowel habits Musc Denies muscle weakness, Denies numbness and Denies tingling Neuro Denies dizziness, Denies frequent falls, Denies numbness, Denies tingling and Denies weakness Endo Denies fatigue and Denies palpitations Physical Exam Vital Signs: Last Vital Signs Pulse 69 05/15/24 10:24 BP 160/90 H 05/15/24 10:24 BMI result Body Mass Index 34.0 Const General: comfortable and no acute distress Orientation/consciousness: patient oriented x3 HEENT Other: Unremarkable Head: Yes normal to inspection Neck Neck: Yes normal visual inspection Chest Chest palpation & inspection: normal inspection of the chest Resp Auscultation: clear to auscultation bilaterally Cardio Palpation: normal PMI Heart sounds: S1 normal heart sound present, S2 normal heart sound present, no gallops, no murmurs and no rubs GI Palpation (GI): Soft to palpation Back/Spine/Pelvis Other: unremarkable Skin General skin exam: no rashes or lesions noted Neuro General: patient oriented x3 Extrem General: Yes normal to inspection Psych Mental Status: mental status grossly normal Office Procedures EKG Details: EKG with underlying sinus rhythm at 69/Min; no significant ST-T changes and otherwise unremarkable[place]. [id number], Complete Assessment & Plan Assessment & Plan (1) Precordial chest pain: Code(s): R07.2 - Precordial pain Category: Medical Plan Atypical sounding chest pain but patient is very anxious that it could be cardiac. However, doubt that could be the case. We will perform a basic workup including echocardiogram and exercise stress test. If any concerning findings, we can reassess. With regard to blood pressure, he believes it is from anxiety but there are prior blood pressures also in the hypertensive range. Hence not clear if he actually has hypertension or not. Will need to be followed with his own PCP. Orders: Orders CA stress test Today R07.2 - Precordial pain CA echo transthoracic complete Today R07.2 - Precordial pain Coding Level of Care Code New Pt Level 3 (90716) Diagnoses Precordial chest pain R07.2 CPT Codes EKG - CPT: [id number], Complete ([id number])
== END 2024-05-15 10:46 | disposition home or self-care (01) ==
PROVIDERS: PCP Internal Medicine Geriatric Medicine; Visit Provider Internal Medicine
DX: R07.2 Precordial pain (principal)
CPT/HCPCS: 93010; 99203

== ENCOUNTER → 2024-05-15 09:25 | Outpatient (BNVA) | payer OTHER, SELFPAY | PROVIDERS: PCP Internal Medicine Geriatric Medicine; Visit Provider Internal Medicine | DX: R07.2 Precordial pain (principal) | CPT/HCPCS: 93005 ==

== ENCOUNTER → 2024-06-14 07:48 | Outpatient (REF) | payer OTHER, SELFPAY ==
--- OUTSIDE RECORDS SUMMARY | 2024-06-14 07:50 | XMS_ITS | Patient Health Record ---
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
--- NOTE | 2024-06-14 07:53 | CA_ITS ---
Acquisition Time: 2024-06-14 09:09:35 Total Exercise Time: 00:03:09 Test Indications: CP Medications: ATORVASTATIN DICLOFENAC METHOCARBOMAL Protocol: DONNA Max HR: 115 BPM 70% of Pred: 162 BPM Max BP: 170/090 mmHG Max Work Load: 4.7 METS Exercise Stress Test with exercise 3 mins 9 secs of Donna Protocol, achieving 70% MPHR, reporting to stop due to back pain, no chest discomfort, without any arrythmias, with baseline hypertension- normotensive response to exercise. WIthout any EKG changes. Will order a Pharmacologic Nuclear Stress Test. Test reviewed with . Referred By: Tom Ansari Overread By: Benjamin Duval
--- NOTE | 2024-06-14 07:53 | CA_ITS ---
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 Normal LV ejection fraction of 60 65% with grade 1 diastolic dysfunction 2. Normal cardiac valvular Dopplers 3. Mildly dilated ascending aorta at 3.9 cm 4. Normal RV systolic pressure 5. No gross pericardial effusion Findings Procedure Information Contrast agent, definity, is being given per protocol without apparent complications. The quality of the study was technically difficult. The study quality is limited by patients body habitus and lung artifact. Left Ventricle Normal left ventricular size, thickness, and systolic function. The visually estimated ejection fraction is between 60-65%. Spectral Doppler is indicative of an impaired relaxation filling pattern. E/E prime ratio is <8, consistent with normal filling pressures. Evidence suggests grade I (mild) diastolic dysfunction. Right Ventricle Normal right ventricular cavity size and systolic function. Atria The left atrium is likely dilated. Interatrial shunt cannot be excluded. The right atrium was not well visualized. Aortic Valve The aortic valve structure and function is likely normal. There is no aortic valve stenosis. There is no aortic valve regurgitation. Mitral Valve Likely normal mitral valve structure and function. There is trace mitral valve regurgitation. There is no mitral valve stenosis. Pulmonic Valve The pulmonic valve was not well visualized. Tricuspid Valve Likely normal tricuspid valve structure and function. There is trace tricuspid valve regurgitation. The right ventricular systolic pressure is normal. The right ventricular systolic pressure is 18 mmHg. Normal right atrial pressure. There is no evidence of pulmonary hypertension. Great Vessels The pulmonary artery was not well visualized. There is mild dilatation of the ascending aorta measuring 3.90 cm. Venous The inferior vena cava is normal in size and collapses greater than 50% with inspiration. Pericardium/Pleural There is no evidence of pericardial effusion. Prior Study Comparison Changes noted compared to prior study dated: 10/27/2018. mildly dilated ascending aorta noted. LVH is not prominent Measurements 2D Linear Measurements IVSd: 1.07 0.6-0.9/0.6-1.0 cm LVIDd: 4.78 3.9-5.3/4.2-5.9 cm LVIDd Index: 2.37 2.4-3.2/2.2-3.1 cm/m2 LVIDs: 3.60 2.0-3.6 cm LVPWd: 0.78 0.7-1.1 cm LA Diam: 3.30 2.7-3.8/3.0-4.0 cm LAIDs Index: 1.63 1.5-2.3 cm/m2 LV Mass: 189.23 67-162/88-224 g LV Mass Index: 93.68 43-95/49-115 g/m2 LVOT Diam: 2.30 3.0+(-)1.3 cm 2D Systolic Function EF 4C: 64.10 >55% EF 2C: 63.70 >55% EF BiP: 64.60 >55% Mitral Valve MV Pk E: 0.55 MV PK A: 0.78 MV Decel Time: 208.00 E/A: 0.70 E'Lateral: 6.31 E'Medial: 5.22 E/E' Med: 10.50 E/E' Lat: 8.70 PHT: 61.00 MVA PHT: 3.61 Decel Peach: 2.64 Aortic Valve AoV Pk Seth: 0.98 AoV Pk Grad: 4.00 YIFAN: 3.91 LVOT LVOT Pk Seth: 0.85 LVOT Mn Seth: 0.58 LVOT VTI: 0.16 LVOT Pk Grad: 3.00 LVOT Mn Grad: 2.00 LVOT Diam: 2.30 LVOT Area: 4.15 Diastolic Function MV Pk E: 0.55 MV Pk A: 0.78 E/A: 0.70 E'Medial: 5.22 E/E' Med: 10.50 E' Laterial: 6.31 E/E' Lat: 8.70 Right Ventricle TAPSE (mm): 19.80 TVS' Seth: 14.70 Tricuspid Valve TR Pk Seth: 1.93 TR Pk Grad: 15.00 RA Press: 3.00 RVSP: 18.00 Great Vessels Aorta Sinus of Valsalva: 3.90 2.0-3.5 cm Ao Asc: 3.90 2.1-3.4 cm Pulmonary Veins Pulm Vein S/D 1.50 Pulmonary Valve PV Pk Seth: 0.80 Peak PV Grad: 3.00 Updated in Other Vendor System with Status of Final Rick Colon MD electronically signed on 06/15/2024 2:31:53 PM with status of Final
== END ==
LOC: HO.CARD 07:48
PROVIDERS: PCP Internal Medicine Geriatric Medicine; Visit Provider Internal Medicine
DX: R07.2 Precordial pain (principal)
CPT/HCPCS: 93017; 93306; Q9957

== ENCOUNTER → 2024-06-14 07:53 | Outpatient (BNV) | payer OTHER, SELFPAY | PROVIDERS: PCP Internal Medicine Geriatric Medicine | DX: R07.9 Chest pain, unspecified (principal) | CPT/HCPCS: 93016; 93018; 93320; 93325; 93350; 93352 ==

== ENCOUNTER → 2024-06-26 08:01 | Outpatient (REF) | payer OTHER, SELFPAY ==
--- NOTE | ~2024-06-26 | NM_ITS ---
Lexiscan Myocardial perfusion study Indication: Chest pain, abnormal EKG Technique: The patient was brought in for a Lexiscan perfusion study on 06/26/2024 and was injected 0.4 mg of Lexiscan intravenously. Within a minute of this injection 30 mCi of sestamibi was given intravenously. Images were obtained using the SPECT gamma camera interlaced with the gating device. Images were obtained in supine position. Resting perfusion study was performed on 06/27/2024. Patient was administered 30 mCi of sestamibi intravenously at rest. Images were then obtained in supine position. Total DLP 199 mGy-cm. Images were processed with the software and compared side to side in short axis, horizontal long axis and vertical long axis views. Findings: Raw aquisition reviewed. Arms by the patient's side. The stress perfusion study showed decreased tracer uptake in the apex, adjacent part of anterior wall, most of the inferior wall, most prominent distally. There is improvement with CT attenuation correction enhancement of this could be artifactual. At the anterior apex, there is still reduced tracer uptake. The gated study shows mildly reduced LV systolic function with calculated LVEF of 48%. LV cavity is normal in size. The gated study shows reduced contractility in the inferior wall. Resting study shows diminished tracer uptake in the inferior wall, most prominent in the midportion. There is improvement with CT attenuation correction and hence could be artifactual. Gating at rest reveals normal wall motion with ejection fraction at 44%. The findings are consistent with was a perfusion defect at the apex and distal anterior wall; partially reversible defect in the inferior wall. This could all be artifactual. Less likely stimulate. NM/NM cardiolite stress test Impression: 1. Myocardial perfusion imaging study shows probable artifactual defects in the apex, distal anterior wall, inferior wall. Less likely ischemia. 2. Gated LVEF is 48% during stress and 44% during rest. Correlate with echocardiogram. 3. Transient ischemic dilatation not present. EKG component of the test reported separately. Electronically signed by: Tom Ansari MD 06/27/2024 03:58 PM [facility]
--- NOTE | 2024-06-26 08:03 | CA_ITS ---
Acquisition Time: 2024-06-26 08:06:16 Total Exercise Time: 00:02:00 Test Indications: CP,Abnormal ECG Medications: ATORVASTATIN DICLOFENAC METHOCARBAMOL Protocol: LEXISCAN Max HR: 120 BPM 74% of Pred: 161 BPM Max BP: 164/82 mmHG Max Work Load: 1.0 METS Pharmacologic stress test with Lexiscan while pt kicked his legs in the chair, with reports of dizziness, flushing in the face, without any arrythmias, with normotensive response to injection. Nondiagnostic EKG for ischemia. In recovery, pt treated with IVP Amnophylline 75mg to reverse Lexiscan, after which pt feeling abck to baseline. Nuclear images pending. Test reviewed with Dr. Babin. Referred By: Benjamin Duval Electronically Signed By: Benjamin Duval
== END ==
LOC: HO.CARD 08:01
PROVIDERS: PCP Internal Medicine Geriatric Medicine
DX: R07.2 Precordial pain (principal)
CPT/HCPCS: 78452; 93017; A9500; J0280; J2785

== ENCOUNTER → 2024-06-26 08:03 | Outpatient (BNV) | payer OTHER, SELFPAY | PROVIDERS: PCP Internal Medicine Geriatric Medicine | DX: R42 Dizziness and giddiness (principal) | CPT/HCPCS: 78452; 93016; 93018 ==

== ENCOUNTER 2024-07-02 13:45 | Outpatient (AMB) | payer OTHER, SELFPAY ==
[2024-07-02 14:09] VITALS: BP 132/78; PULSE 80; BMI 33.8
--- NOTE | 2024-07-02 14:09 | A.OFFVIS_ITS ---
Vital Signs 07/02/24 14:09 Height 5 ft 6 in Weight 209 lb 7.026 oz BMI 33.8 BP 132/78 Blood Pressure Location Lt brachial Position Sitting Pulse 80 Pulse Source Pulse Oximeter Intake Visit Reasons: F/U s/p testing Allergies No Known Allergies [No Known Allergies*] Allergy (Verified 04/09/24 12:33) Medication List - Last Reconciled 07/02/24 by Benjamin Duval NP atorvastatin 20 mg PO DAILY methocarbamol 750 mg PO TID PRN HPI Comments Details: This is a 59-year-old male patient presenting for a follow-up regarding chest pain. The patient reports ongoing sharp chest pains localized beneath his left breast area and under the nipple. These episodes occur both at rest and then with exertion. Patient denies any associated symptoms and remains concerned about the possibility of a cardiac etiology. He further denies exertional shortness of breath, palpitations, dizziness, orthopnea, PND, leg edema, presyncope or syncope. [facility] Medical History Thrombosed external hemorrhoids Family History Mother Diabetes Father Diabetes Stroke Pacemaker Social History Alcohol intake: never Patient Tobacco Use Status: Never used Tobacco Review of Systems Const Denies weakness ENT Denies dizziness Card Denies chest pain, Denies chest pain with activity, Denies syncope, Denies rapid heart rate, Denies pedal edema, Denies edema, Denies leg edema, Denies lightheadedness, Denies palpitations, Denies dyspnea, Denies dyspnea on exertion and Denies orthopnea Resp Denies cough, Denies dyspnea and Denies dyspnea on exertion GI Denies hematochezia and Denies change in stool character Musc Denies abnormal gait, Denies muscle cramps, Denies muscle weakness, Denies numbness, Denies radiating pain into limb and Denies tingling Neuro Denies abnormal gait, Denies dizziness, Denies syncope, Denies numbness, Denies tingling and Denies weakness Endo Denies palpitations Physical Exam Vital Signs: Last Vital Signs Pulse 80 07/02/24 14:09 BP 132/78 07/02/24 14:09 BMI result Body Mass Index 33.8 Const General: cooperative, healthy appearing, comfortable and no acute distress Orientation/consciousness: patient oriented x3 HEENT Head: Yes normal to inspection Neck Neck: Yes normal visual inspection, Yes trachea midline and Yes supple Chest Chest palpation & inspection: normal inspection of the chest Resp Effort & Inspection: normal respiratory effort Auscultation: clear to auscultation bilaterally, no crackles, no rales, no rhonchi and no wheezes Cardio Jugular venous distension: no JVD Palpation: normal PMI Rate: regular rate Rhythm: regular rhythm Heart sounds: S1 normal heart sound present, S2 normal heart sound present, no click, no gallops, no murmurs and no rubs Peripheral pulses: Peripheral pulses 2+ throughout GI Inspection: Yes normal to inspection Palpation (GI): Soft to palpation Auscultation: normal bowel sounds Skin General skin exam: no rashes or lesions noted Neuro General: patient oriented x3 Extrem General: Yes normal to inspection, No no pedal edema and No calf tenderness Psych Appearance: grossly normal Mental Status: mental status grossly normal Speech and movement: Normal speech and movement present Assessment & Plan Assessment & Plan (1) Precordial chest pain: Code(s): R07.2 - Precordial pain Category: Medical (2) Hyperlipidemia: Code(s): E78.5 - Hyperlipidemia, unspecified Plan 06/14/2024- echo showed normal EF 60 to 65% with grade 1 diastolic dysfunction, mildly dilated ascending aorta at 3.9 cm. 06/14/2024- patient had a treadmill stress test unable to complete due to back issues. 06/26/2024- myocardial perfusion imaging study showed probable artifactual defects in the apex, distal anterior wall, inferior wall. The results were discussed with this patient. However, given the presence of artifacts, the patient remains concerned about the possibility of a cardiac etiology and wishes to pursue further evaluation. A coronary CT scan will be ordered to assess for potential cardiac issues. Blood pressure today is well-controlled. Continue atorvastatin therapy, last LDL 112, ideal target less than 100. The patient will follow-up as needed following the test. In the interim, advised to seek emergency room care in case of exertional chest pain that is not relieved by rest, shortness of breath, palpitations, dizziness, presyncope, or syncope. This note was generated using voice recognition software. While every effort has been made to ensure accuracy and proper machinery engineer, there may be occasional errors that could affect the content or meaning of the described symptoms. Orders: Orders CT Cardiac Coronary Angio Today R07.2 - Precordial pain Basic Metabolic Panel Today R07.2 - Precordial pain Coding Level of Care Code Est Pt Level 4 (78572) Diagnoses Precordial chest pain R07.2 Hyperlipidemia E78.5 Time Spent (min) 31 Comment Time spent in reviewing the chart, test results, assessment, counseling and documentation.
== END 2024-07-02 14:43 | disposition home or self-care (01) ==
PROVIDERS: PCP Internal Medicine Geriatric Medicine
DX: R07.2 Precordial pain (principal); E78.5 Hyperlipidemia, unspecified
CPT/HCPCS: 99214

== ENCOUNTER 2024-07-16 06:14 | Outpatient (REF) | payer OTHER, SELFPAY ==
--- OUTSIDE RECORDS SUMMARY | 2024-07-16 06:16 | XMS_ITS | Encounter Summary ---
Author Organization [employer] Address [address] [place] [address] Care Team Providers Care Sheet Metal Welder Name Role Phone Name, Perry HENRY Primary Care Provider [phone] Encounter Details Date Type Department Care Team ([facility] st Contact Info) Description 06/26/2024 Orders Only [facility] External Provider, [facility] Social History Tobacco Use Types Packs/Day Years Used Date Smoking Tobacco: Former Cigarettes Q uit: 1999 Smokeless Tobacco: Never Alcohol Use Standard Drinks/Week Comments Yes 0 (1 standard drink = 0.6 oz pur e alcohol) occassional Depression Answer Date Recorded Patient Health Questionnaire-9 Score 0 12/05/2023 Patient Health Questionnaire-9 Score 0 12/05/2023 Last PHQ-9: Questionnaire Data Not on file 0 12/05/2023 Housing Stability Answer Date Recorded What is your housing situation today? I have [place] 12/05/[address] you li ve. Do you have problems with any of the following? None of the above 12/05/2023 Food Insecurity Answer Date Recorded Within the past 12 months, y ou worried that your food would run out before you got money to buy more: Never True 12/05/2023 Within the past 12 months,th e food you bought just didn't last and you didn't have enough money to get more: Never True Transportation Answer Date Recorded In the past 12 months, has l ack of transportation kept you from medical appts, meetings, work or from getting things needed for daily living? No 12/05/2023 Utilities Answer Date Recorded In the past 12 months, has t he [employer], [employer], oil or water Rounds threatened to shut off services in your home? No 12/05/2023 Depression Answer Date Recorded Patient Health Questionnaire-2 Score 0 12/05/2023 Internet Access Answer Date Recorded Internet Access Q1 No 02/12/2024 Internet Access Q2 I do not want or need it 07/2023 Sex and Gender Information Value Date Recorded Sex Assigned at Male 04/11/2022 10:29 AM EDT Legal Sex Male 10:29 AM EDT Gender Identity Male 04/11/2022 10:29 AM EDT Sexual Orientation Straight 04/11/2022 10 :29 AM EDT documented as of this encounter Plan of Treatment Upcoming Encounters Date Type Department Care Team (Late st Contact Info) Description 08/12/2024 1:30 PM EST Office Visit [facility] [address] [place] [address] Name, MD Perry [address] [facility] [place] [address] documented as of this encounter Procedures Procedure Name Priority Date/Time Associated Diagnosis Comments STRESS TEST WITH MYOCARDIAL PERFUSION Routine 06/26/2024 8:30 AM EST documented in this encounter Results * Stress test with myocardial perfusion (06/26/2024 8:30 AM EST) 06/26/2024 8:30 AM EST Narrative [facility] IM[facility] - 06/27/2024 4:01 PM EST ? [facility] ?[address] ?[place] [address] ?Nuclear Medicine Report ? Signed ? Patient: Kathleen,Rocco ?MR#: [id number] ? : 1965 ?Acct:[id number] ? Age/Sex: 59 / M ?ADM Date: 01/15/25 ? Loc: HO.CARD ? Attending Bryce Duval OBSTETRICS NURSE ? Ordering Physician: Benjamin Duval NP ?? Date of Service: 06/26/24 ?? Procedure(s): NM cardiolite stress test ?? Accession Number(s): [id number] ? cc: Name,Perry HENRY; Benjamin Duval NP ? Lexiscan Myocardial perfusion study ? Indication: ?? Chest pain, abnormal EKG ? Technique: ? The patient was brought in for a Lexiscan perfusion study on 06/26/2024 ?? and was injected 0.4 mg of Lexiscan intravenously. Within a minute of ?? this injection 30 mCi of sestamibi was given intravenously. Images were ?? obtained using the SPECT gamma camera interlaced with the gating ?? device. Images were obtained in supine position. ? Resting perfusion study was performed on 06/27/2024. Patient was ?? administered 30 mCi of sestamibi intravenously at rest. Images were ?? then obtained in supine position. Total DLP 199 mGy-cm. ? Images were processed with the software and compared side to side in ?? short axis, horizontal long axis and vertical long axis views. ? Findings: ? Raw aquisition reviewed. Arms by the patient's side. ? The stress perfusion study showed ??decreased tracer uptake in the apex, ?? adjacent part of anterior wall, most of the inferior wall, most ?? prominent distally. There is improvement with CT attenuation correction ?? enhancement of this could be artifactual. At the anterior apex, there ?? is still reduced tracer uptake. The gated study shows mildly reduced LV ?? systolic function with calculated LVEF of 48%. LV cavity is normal in ?? size. The gated study shows reduced contractility in the inferior wall. ? Resting study shows diminished tracer uptake in the inferior wall, most ?? prominent in the midportion. There is improvement with CT attenuation ?? correction and hence could be artifactual. Gating at rest reveals ?? normal wall motion with ejection fraction at 44%. ? The findings are consistent with was a perfusion defect at the apex and ?? distal anterior wall; partially reversible defect in the inferior wall. ?? This could all be artifactual. Less likely stimulate. ? NM/NM cardiolite stress test ?? Impression: ? 1. ??Myocardial perfusion imaging study shows probable artifactual ?? defects in the apex, distal anterior wall, inferior wall. Less likely ?? ischemia. ?? 2. ??Gated LVEF is 48% during stress and 44% during rest. Correlate with ?? echocardiogram. ?? 3. Transient ischemic dilatation not present. ? EKG component of the test reported separately. ? Electronically signed by: ??Tom Ansari MD ??06/27/2024 03:58 ?? PM EST RP ? Dictated By: ?Tom Ansari MD ? Signed By: ?<Electronically signed by Tom Ansari MD in OV> ?06/27/24 1558 ? DD/ 0830 ? TD/TT: 06/27/24 1230 ? [employer]: ? Procedure Note Donjayy, Image - 06/27/[address] [address] Nuclear Medicine Report Signed Patient: Gregg Kathleen#: [id number] : 1965Acct:[id number] Age/Sex: 59 / MADM Date: 06/26/24 Loc: LOLI Attending Dr: Benjamin Duval NP Ordering Physician: Benjamin Duval NP Date of Service: 06/26/24 Procedure(s): NM cardiolite stress test Accession Number(s): [id number] cc: Perry Oneil MD; Benjamin Duval NP Lexiscan Myocardial perfusion study Indication: Chest pain, abnormal EKG Technique: The patient was brought in for a Lexiscan perfusion study on 06/26/2024 and was injected 0.4 mg of Lexiscan intravenously. Within a minute of this injection 30 mCi of sestamibi was given intravenously. Images were obtained using the SPECT gamma camera interlaced with the gating device. Images were obtained in supine position. Resting perfusion study was performed on 06/27/2024. Patient was administered 30 mCi of sestamibi intravenously at rest. Images were then obtained in supine position. Total DLP 199 mGy-cm. Images were processed with the software and compared side to side in short axis, horizontal long axis and vertical long axis views. Findings: Raw aquisition reviewed. Arms by the patient's side. The stress perfusion study showed decreased tracer uptake in the apex, adjacent part of anterior wall, most of the inferior wall, most prominent distally. There is improvement with CT attenuation correction enhancement of this could be artifactual. At the anterior apex, there is still reduced tracer uptake. The gated study shows mildly reduced LV systolic function with calculated LVEF of 48%. LV cavity is normal in size. The gated study shows reduced contractility in the inferior wall. Resting study shows diminished tracer uptake in the inferior wall, most prominent in the midportion. There is improvement with CT attenuation correction and hence could be artifactual. Gating at rest reveals normal wall motion with ejection fraction at 44%. The findings are consistent with was a perfusion defect at the apex and distal anterior wall; partially reversible defect in the inferior wall. This could all be artifactual. Less likely stimulate. NM/NM cardiolite stress test Impression: 1. Myocardial perfusion imaging study shows probable artifactual defects in the apex, distal anterior wall, inferior wall. Less likely ischemia. 2. Gated LVEF is 48% during stress and 44% during rest. Correlate with echocardiogram. 3. Transient ischemic dilatation not present. EKG component of the test reported separately. Electronically signed by: Tom Ansari MD 06/27/2024 03:58 PM EST Dictated By: Tom Ansari MD Signed By: <Electronically signed by Tom Ansari MD inOV> 06/27/24 1558 DD/ 0830 TD/TT: 06/27/24 1230 [employer]: [facility] External Provider CV STRE SS PROCEDURES Final Result [facility] [address] [place] [id number] documented in this encounter Visit Diagnoses Not on filedocumented in this encounter Additional Health Concerns Assessment Noted Time PHQ-9 Depression Total Score: 0 12/05/19 24 9:19 AM EDT documented as of this encounter Care Teams Sheet Metal Welder Relationship Specialty Start Date End Date Name, MD Perry [address] [place] [address] PCP - General Family Medicine 11/30/15 documented as of this encounter
--- OUTSIDE RECORDS SUMMARY | 2024-07-16 06:16 | XMS_ITS | Clinical Summary ---
Author Organization [employer] [facility] Address [address] [place] [id number] Care Team Providers Care Electronics Test Engineer Name Role Phone Name, Perry HENRY Primary Care Provider Surgical History Surgery Date Site/Laterality Comments TONSILLECTOMY PROCEDURE: HISTORICAL TONSILLECTOMY Family History Relation Name Status Comments Brother 1 Alive DM Brother 2 Alive Daughter Alive Father Alive High cholestero l Maternal Grandmother DC at a ge 80. Mother Alive DM, HTN Sister Alive Son 1 Alive Son 2 Alive Social History Tobacco Use Types Packs/Day Years Used Date Smoking Tobacco: Former Smokeless Tobacco: Former Alcohol Use Standard Drinks/Week Comments Yes 0 (1 standard drink = 0.6 oz pur e alcohol) Sex and Gender Information Value Date Recorded Sex Assigned at Not on file Gender Identity Not on file Sexual Orientation Not on file Obstetrics History Plan of Treatment Health Maintenance Due Date Last Done Comments Hepatitis B Vaccines (1 of 3 - 19+ 3-dose series) 1984 Zoster Vaccines (1 of 2) 2015 DTaP,Tdap,and Td Vaccines (2 - Td or Tdap) 10/06/2016 10/06/2006 COVID-19 Vaccine (2023-2 5 season) 2024 Influenza Vaccine (#1) 2024 RSV Immunization Patients 60 + Years Old (1 - 1-dose 75+ series) 2040 HIB Vaccines Aged Out No longer eligi ble based on patient's age to complete this topic HPV Vaccines Aged Out No longer eligi ble based on patient's age to complete this topic Hepatitis A Vaccines Aged Out No long er eligible based on patient's age to complete this topic IPV Vaccines Aged Out No longer eligi ble based on patient's age to complete this topic MMR Vaccines Aged Out No longer eligi ble based on patient's age to complete this topic Meningococcal ACWY Vaccine Aged Out N o longer eligible based on patient's age to complete this topic Pneumococcal Vaccine: Pediat rics (0 to 5 Years) and At-Risk Patients (6 to 64 Years) Aged Out No longer eligi ble based on patient's age to complete this topic RSV Immunization Patients Un brent 20 months Aged Out No longer eligible b ased on patient's age to complete this topic Varicella Vaccines Aged Out No longer eligible based on patient's age to complete this topic Care Teams Electronics Test Engineer Relationship Specialty Start Date End Date Name, MD Perry [address] [place], [place] PCP - General 09/07/06
--- OUTSIDE RECORDS SUMMARY | 2024-07-16 06:16 | XMS_ITS | Clinical Summary ---
Author Organization [employer] Address [address] [place] [address] 7[address] [place] [address] Care Team Providers Care Disaster Recovery Coordinator Name Role Phone Name, Perry HENRY Primary Care Provider [phone] Allergies No known active allergies Medications atorvastatin (Lipitor) 20 MG tablet Take 1 tablet (20 mg) by mouth Once per day. 30 tablet 11 4 01/23/20 25 Active Blood Pressure kit Use twice a day at home 1 kit 4 Active acyclovir (Zovirax) 400 MG tabletIndicatio ns:Herpes TAKE 1 TABLET BY MOUTH EVERY 8 HOURS IF NEEDED FOR OUTBREAKS FOR UP TO 10 DAYS 15 tablet 11 4 Active methocarbamol (Robaxin) 500 MG tablet Take 1 tablet (500 mg) by mouth every 8 (eight) hours if needed for muscle spasms. 90 tablet 4 Active Active Problems Problem Noted Date Diagnosed Date History of colonoscopy 11/21/2022 Overview (11/21/2022): Normal for colon CA screening at [facility] with Dr Hood in 05/2016 Obstructive sleep apnea syndrome 06/14/2017 Acute low back pain 11/30/2015 Genital herpes 08/19/2011 DJD (degenerative joint disease) of knee 011 Encounters Date Type Department Care Team Description 06/26/2024 Orders Only [facility] External Provider, [facility] 05/01/2024 11:30 AM EST Office Visit [facility] [address] [place] [address] Name, MD Perry Chronic left-sided low back pain with left-sided sciatica (Primary Dx); White coat syndrome without hypertension; Vaccination refused by patient; Herpes 05/01/2024 Travel 04/29/2024 Telephone [facility] [address] [place] [address] [phone] Perry Oneil MD from Last 3 Months Immunizations Name Administration Dates Next Due Moderna Covid-19 Vaccine 12+ 04/24/2021,10/08/19 21,09/09/2020 Tdap 04/22/2016,10/06/2006 Zoster, Recombinant 08/01/2021,04/10/2021 Social History Tobacco Use Types Packs/Day Years Used Date Smoking Tobacco: Former Cigarettes Q uit: 1999 Smokeless Tobacco: Never Tobacco Cessation:Counseling Given: Not Answered Alcohol Use Standard Drinks/Week Comments Yes 0 [...] the past 12 months, has t he electric, gas, oil or water company threatened to shut off services in your [...] Orientation Straight 04/11/2022 10 :29 AM EDT Last Filed Vital Signs Vital Sign Reading Time Taken Comments Blood Pressure 155/93 05/01/2024 11:26 AM EST Pulse 87 05/01/2024 11:26 AM EST Temperature 36.9 ??C (98.4 ??F) 05/01/2024 11:[address] Respiratory Rate 18 05/01/2024 11:26 AM EST Oxygen Saturation 98% 05/01/2024 11:26 AM EST Inhaled Oxygen Concentration - - Weight 93.7 kg (206 lb 9.6 oz) 05/01/2024 11:26 AM EST Height 167.6 cm (5' 6 ) 05/01/2024 11:26 AM EST Body Mass Index 33.35 05/01/2024 11:26 AM EST Plan of Treatment Upcoming Encounters Date Type Department Care Team (Late st Contact Info) Description 08/12/2024 1:30 PM EST Office Visit [facility] [address] [place] [address] Name, MD Perry [address] [place] [address] Health Maintenance Due Date Last Done Comments CT Colonography 1965 FIT DNA/Cologuard 1965 FIT 1965 FOBT 1965 HIV Screening 1965 Sigmoidoscopy 1965 Hepatitis B Vaccines (1 of 3 - 19+ 3-dose series) 1984 Pneumococcal Vaccine: 50+ Years (1 of 1 - PCV) 2015 COVID-19 Vaccine (2023-2 5 season) 2024 04/24/2021, 10/07/2020, 09/09/2020 Influenza Vaccine (#1) 2024 Alcohol/Substance Use Screening 12/04/2024 12/05/2023 Depression Screening 12/04/2024 12/05/2023, 12/05/2023 SDOH Screening 12/04/2024 12/05/2023 Tobacco Screening 05/01/2025 05/01/2024 DTaP/Tdap/Td Vaccines (3 - T d or Tdap) 04/22/2026 04/22/2016, 10/06/2006 Colonoscopy 05/19/2026 05/19/2016 Colorectal Cancer Screening 05/19/2026 Lipid Panel 12/04/2028 12/05/2023, 12/21/2022 RSV Patients and Patients Aged 60 years or older (1 - 1-dose 75+ series) 2040 Zoster Vaccines Completed 08/01/2021, 04/10/2021 Hepatitis C Screening Completed 12/05/2023 HIB Vaccines Aged Out No longer eligi [...] patient's age to complete this topic Meningococcal Vaccine Aged Out No carlene yahir eligible based on patient's age to complete this topic Pneumococcal Vaccine: Pediatrics (0 to 5 Years) and At-Risk Patients (6 to 49) Years) Aged Out No longer eligible b ased on patient's age to complete this topic RSV under 20 months Aged Out No longe r eligible based on patient's age to complete this topic Rotavirus Vaccines Aged Out No longer eligible based on patient's age to complete this topic Procedures Procedure Name Priority Date/Time Associated Diagnosis Comments STRESS TEST WITH MYOCARDIAL PERFUSION Routine 06/26/2024 8:30 AM EST HEPATITIS C AB W/REFL TO HCV RNA, QN, PCR Routine 12/05/2023 10:18 AM EDT Need for hepatitis C screening test LIPID PANEL, STANDARD Routine 12/05/2023 10:18 AM EDT PE (physical exam), routine Screening for cholesterol level HM COLONOSCOPY Routine 05/19/2016 4:01 PM EST from Last 3 Months or Most Recently Relevant to Health Maintenance Results * Stress test with myocardial perfusion (06/26/2024 8:30 AM EST) 06/26/2024 8:30 AM EST Narrative [facility] - 06/27/2024 4:01 PM EST ? [facility] ?[address] ?[place], [place] [address] ?Nuclear Medicine Report ? Signed ? Patient: Hever,Rocco ?MR#: [id number] ? : 1965 ?Acct:[id number] ? Age/Sex: 59 / M ?ADM Date: 06/26/24 ? Loc: HO.CARD ? Attending Dr: Benjamin Duval NP ? Ordering Physician: Benjamin Duval NP ?? Date of Service: 06/26/24 ?? Procedure(s): NM cardiolite stress test ?? Accession Number(s): [id number] ? cc: Clarice,Perry HENRY; Benjamin Duval NP ? Lexiscan Myocardial [...] Ansari MD ??06/27/2024 03:58 ?? PM EST ? Dictated By: ?Tom Ansari MD ? Signed By: ?<Electronically signed by Tom Ansari MD in OV> ?06/27/24 1558 ? DD/ 0830 ? TD/TT: 06/27/24 1230 ? Eeg Technician: ? Procedure Note Kathryn, Image - 06/27/2024 [place] [id number] Nuclear Medicine Report Signed Patient: Gregg Burch#: [id number] : 1965Acct:[id number] Age/Sex: 59 / MADM Date: 06/26/24 Loc: LOLI Attending Dr: Benjamin Duval NP Ordering Physician: Benjamin Duval NP Date of Service: 06/26/24 Procedure(s): NM cardiolite stress test Accession Number(s): [id number] cc: Perry Oneil MD; Benjamin Duval NP [...] by: Tom Ansari MD 06/27/2024 03:58 PM [facility] Dictated By: Tom Ansari MD Signed By: <Electronically signed by Tom Ansari MD inOV> 06/27/24 1558 DD/ 0830 TD/TT: 06/27/24 1230 Eeg Technician: [facility] External Provider CV STRE SS PROCEDURES Final Result Performing Organization Address City/[facility]/ZIP Co de Phone Number [facility] [address] [place] [address] * Hepatitis C Antibody with Reflex to HCV, RNA, Quantitative, Real-Time PCR (12/05/2023 10:18 AM EDT) Hepatitis C Antibody Nonreactive Nonreactive [facility] Comment:Antibodies to HCV no t detected; does not exclude early acuteHCV infection. Blood Venous blood specimen / Unknown 12/05/2023 10:18 AM EDT 12/05/2023 11:38 AM EDT Perry Oneil MD LAB BLOOD ORDERABLES Final Resul t Performing Organization Address [facility] Co de Phone Number [facility] [address] [place] [phone] * (ABNORMAL) Lipid Panel, Standard (12/05/2023 10:18 AM EDT) Triglycerides 83 <150 mg/dL [facility] Comment:Desirable Triglyceri de: less than 150 mg/dLBorderline High Triglyceride 150-199 mg/dLHigh Triglyceride: 200-499 mg/dLVery High Triglyceride: greater than or equal to 5OO mg/dL Cholesterol 180 <200 mg/dL [facility] Comment:Desirable Cholestero l: less than 200 mg/dLBorderline High Cholesterol: 200-239 mg/dLHigh Cholesterol: greater than 239 mg/dL LDL Cholesterol Calculated 112(H) <100 mg/dL [facility] Comment:Desirable LDL: less than 100 mg/dLNear Optimal/Above Optimal LDL: 110- 129 mg/dLBorderline High LDL: 130-159 mg/dLHigh LDL: 160-189 mg/dLVery High LDL: greater than or equal to 190 mg/dL HDL Cholesterol 52 >40 mg/dL [facility] Comment:Desirable HDL: great er than 40 mg/dL Note: This HDL assay may give artificially low results in patients with liver disease. Blood Venous blood specimen / Unknown 12/05/2023 10:18 AM EDT 12/05/2023 11:38 AM EDT Perry Oneil MD LAB BLOOD ORDERABLES Final Resul t [facility] [address] [place] [address] [phone] * Hm Colonoscopy (05/19/2016 4:01 PM EST) Colonoscopy Normal Normal Comment:repeat 05/2026 Perry Oneil MD HEALTH MAINTENANCE Final Result from Last 3 Months or Most Recently Relevant to Health Maintenance Insurance [employer] [place] [id number] Care Teams Disaster Recovery Coordinator Relationship Specialty Start Date End Date Name, MD Perry [address] [place] [address] PCP - General Family Medicine 11/30/15
== END 2024-07-16 06:15 | disposition home or self-care (01) ==
LOC: CF 06:14
PROVIDERS: Visit Provider Anesthesiology
DX: M54.50 Low back pain, unspecified (principal)
CPT/HCPCS: J2003

== ENCOUNTER 2024-08-09 09:45 | Outpatient (REF) | payer OTHER, SELFPAY ==
--- OUTSIDE RECORDS SUMMARY | 2024-08-09 10:34 | XMS_ITS | Encounter Summary ---
Author Organization [employer] Address [address] [place] [address] 7 [place] [address] Care Team Providers Care Mechanical Engineering Draftsperson Name Role Phone Name, Perry HENRY Primary Care Provider [phone] Reason for Visit * Reason Comments Pre-visit Planning SDOH positive, Tobac co screening negative Encounter Details Date Type Department Care Team ([facility] st Contact Info) Description 08/02/2024 Patient Outreach [facility] MED & PEDS [address] [place], [place] [phone] Name, MD Perry [address] [place] [address] Pre-visit Planning (SDOH positive, Tobacco screening negative) Social History Tobacco Use Types Packs/Day Years [...] before you got money to buy more: Often true 08/02/2024 Within the past 12 months,th e food you bought just didn't last and you didn't have enough money to get more: Often true Transportation Answer Date Recorded In the past 12 months, has l ack of transportation kept you from medical appts, meetings, work or from getting things needed for daily living? No 12/05/2023 Utilities Answer Date Recorded In the past 12 months, has t he electric, gas, oil or water company threatened to shut off services in your home? Yes 08/02/2024 Depression Answer Date Recorded Patient Health Questionnaire-2 Score 0 12/05/2023 Internet Access Answer Date Recorded Internet Access Q1 Yes 08/02/2024 Internet Access Q2 I do not want or need it 07/14 Sex and Gender Information Value Date Recorded Sex Assigned at Male 04/11/2022 10:29 AM EDT Legal Sex Male 10:29 AM EDT Gender Identity Male 04/11/2022 10:29 AM EDT Sexual Orientation Straight 04/11/2022 10 :29 AM EDT documented as of this encounter Progress Notes * Gabby Rodriguez - 08/02/2024 11:07 AM EST CC Gabby Parekh placed successful outbound call to patient for pre-visit planning. Patient name and confirmed. Patient confirms appt date and time, and has transportation arrangements. Biggest concern for appointment at this time is no concerns. Appropriate screenings completed in anticipation ofappointment. SDOH positive, patient needs assistance with food insecurity and utilities ( light) documented in this encounter Plan of Treatment Upcoming Encounters Date Type Department Care Team (Late st Contact Info) Description 08/12/2024 1:30 PM EST Office Visit [facility] [address] [place] [address] Name, MD Perry [address] [place] [address] documented as of this encounter Visit Diagnoses Not on filedocumented in this encounter Additional Health Concerns Assessment Noted Time PHQ-9 Depression Total Score: 0 12/05/19 24 9:19 AM EDT documented as of this encounter Care Teams Mechanical Engineering Draftsperson Relationship Specialty Start Date End Date NamePerry MD [address] [place] [address] PCP - General Family Medicine 11/30/15 documented as of this encounter
--- OUTSIDE RECORDS SUMMARY | 2024-08-09 10:34 | XMS_ITS | Patient Health Record ---
Author Organization [employer] Address [address] [facility] [address] [place] [address] Care Team Providers Care Ethylbenzene Oxidizer Name Role Phone Shanice Cardenas Primary Care Provider Allergies No Known Allergies Reason For Referral No Information Plan Of Treatment No Information Insurance Providers Payer Name Payer Address Payer Phone Subscriber Number Group Number Insured Name Patient Relationship to Insured Coverage Start Date Coverage End Date [facility] [address] [phone] [id number] Rocco Kathleen Self - patient is the insured
--- OUTSIDE RECORDS SUMMARY | 2024-08-09 10:34 | XMS_ITS | Clinical Summary ---
Author Organization [facility] Address [address] [place] [phone] Care Team Providers Care Station Mechanic Apprentice Name Role Phone Name, Perry HENRY Primary Care Provider [phone] Surgical History Surgery Date Site/Laterality Comments TONSILLECTOMY PROCEDURE: HISTORICAL TONSILLECTOMY Family History Relation Name Status Comments Brother 1 Alive DM Brother 2 Alive Daughter Alive Father Alive High cholestero l Maternal Grandmother [place] at [place] 80. Mother Alive DM, HTN Sister Alive Son 1 Alive Son 2 Alive Social History Tobacco Use Types Packs/Day Years Used Date Smoking Tobacco: Former Smokeless Tobacco: Former Alcohol Use Standard Drinks/Week Comments Yes 0 (1 standard drink = 0.6 oz pur e alcohol) Sex and Gender Information Value Date Recorded Sex Assigned at Not on file Legal Sex Male 2:14 AM EST Gender Identity Not on file Sexual Orientation Not on file Obstetrics History Plan of Treatment Health Maintenance Due Date Last Done Comments Hepatitis B Vaccines (1 of 3 - 19+ 3-dose series) 1984 Pneumococcal Vaccine: 50+ Ye ars (1 of 1 - PCV) 2015 Zoster Vaccines (1 of 2) 2015 DTaP,Tdap,and Td Vaccines (2 - Td or Tdap) 10/06/2016 10/06/2006 COVID-19 Vaccine ( - 2023-2 5 season) 2024 Influenza Vaccine (#1) 2024 [...] patient's age to complete this topic Meningococcal B Vacine Aged Out No lo nger eligible based on patient's age to complete [...] age to complete this topic Care Teams Station Mechanic Apprentice Relationship Specialty Start Date End Date Name, MD Perry [address] [place], [place] PCP - General 09/07/06
--- OUTSIDE RECORDS SUMMARY | 2024-08-09 10:34 | XMS_ITS | Encounter Summary ---
Author Organization [employer] Address [address] [place] [address] 7 [place] [address] Care Team Providers Care Review Analyst Name Role Phone Name, Perry HENRY Primary Care Provider [phone] Reason for Visit * Reason Comments Care Coordination CHW outreach for SDO H housing search-referral completed Encounter Details Date Type Department Care Team (Latest Contact Info) Description 08/02/2024 Patient Outreach [facility] [address] [place], [place] [phone] Name, MD Perry [address] [place] [address] Care Coordination (CHW outreach for SDOH housing search-referral completed ) Social History Tobacco Use Types Packs/Day Years [...] as of this encounter Progress Notes * Mitesh Best - 08/02/2024 1:26 PM EST CHW Mitesh Best, placed outbound call to patient for assistance with SDOH as a referral was received by the provider. Patient's name and were confirmed. Patient screened positive for the following SDMA housing insecurities. Patient states is staying with her friend but is searching for her own apartment. CHW referral patient to the list of application mail out to her address on file. Patient verbalizes understanding, and able to agree with plan to follow up herself. Patient educated on extended clinic hours on Mondays through Wednesdays, and Walk-In Urgent Care Located in [facility]. Patient provided with after-hours line for [facility], , which offer night time triage service and option to transfer to financial sales professional provider if needed. documented in this encounter Plan of Treatment Upcoming Encounters Date Type Department Care Team ([facility] st Contact Info) Description 08/12/2024 1:30 PM EST Office Visit [facility] [address] [place] [address] Name, MD Perry [address] [place] [address] documented as of this encounter Visit Diagnoses Not on filedocumented in this encounter Additional Health Concerns Assessment Noted Time PHQ-9 Depression Total Score: 0 12/05/19 24 9:19 AM EDT documented as of this encounter Care Teams Review Analyst Relationship Specialty Start Date End Date Name, MD Perry [address] [place] [address] PCP - General Family Medicine 11/30/15 documented as of this encounter
--- OUTSIDE RECORDS SUMMARY | 2024-08-09 10:34 | XMS_ITS | Clinical Summary ---
Author Organization [employer] Address [address] [place] [address] 7[address] [place] [address] Care Team Providers Care Brazing Machine Operator Name Role Phone Name, Perry HENRY Primary Care Provider Allergies No known active allergies Medications atorvastatin [...] (11/21/2022): Normal for colon CA screening at [facility] with Dr Hood in 05/2016 Obstructive sleep apnea syndrome 06/14/2017 Acute low back pain 11/30/2015 Genital herpes 08/19/2011 DJD (degenerative joint disease) of knee 011 Encounters Date Type Department Care Team Description 08/07/2024 Telephone [facility] CHC MED & PEDS [address] [place] [address] Name, MD Perry chartprep 08/02/2024 Patient Outreach [facility] [address] [place], [place] [phone] Name, MD Perry Care Coordination (CHW outreach for SDOH housing search-referral completed ) 08/02/2024 Patient Outreach [facility] MED & PEDS [address] [place] [address] NamePerry MD Pre-visit Planning (SDOH positive, Tobacco screening negative) 06/26/2024 Orders Only [facility] External Provider, [facility] from Last 3 Months Immunizations Name Administration [...] Description 08/12/2024 1:30 PM EST Office Visit [facility] [address] [place] [address] Name, MD Perry [address] [place] [address] Health Maintenance Due Date Last Done Comments CT Colonography 1965 FIT DNA/Cologuard 1965 FIT 1965 FOBT 1965 HIV Screening 1965 Sigmoidoscopy 1965 Hepatitis B Vaccines (1 of 3 - 19+ 3-dose series) 1984 Pneumococcal Vaccine: 50+ Years (1 of 1 - PCV) 2015 COVID-19 Vaccine (2023-2 5 season) 2024 04/24/2021, 10/07/2020, 09/09/2020 Alcohol/Substance Use Screening 12/04/2024 12/05/2023 Depression Screening 12/04/2024 12/05/2023, 12/05/2023 Tobacco Screening 05/01/2025 05/01/2024 SDOH Screening 08/02/2025 08/02/2024 DTaP/Tdap/Td Vaccines (3 - T d or Tdap) 04/22/2026 04/22/2016, 10/06/2006 Colonoscopy 05/19/2026 05/19/2016 Colorectal Cancer Screening 05/19/2026 Lipid Panel 12/04/2028 12/05/2023, 12/21/2022 RSV Patients and Patients Aged 60 years or older (1 - 1-dose 75+ series) 2040 Zoster Vaccines Completed 08/01/2021, 04/10/2021 Hepatitis C Screening Completed 12/05/2023 Influenza Vaccine Completed 08/04/2024 HIB Vaccines Aged Out No longer eligi [...] AM EST) 06/26/2024 8:30 AM EST Narrative [facility] - 06/27/2024 4:01 PM EST ? [facility] ?[address] ?[place], [place] [address] ?Nuclear Medicine Report ? Signed ? Patient: Burch,Rocco ?MR#: [id number] ? : 1965 ?Acct:[id number] ? Age/Sex: 59 / M ?ADM Date: 06/26/24 ? Loc: HO.CARD ? Attending Dr: Benjamin Duval NP ? Ordering Physician: Benjamin Duval NP ?? Date of Service: 06/26/24 ?? Procedure(s): NM cardiolite stress test ?? Accession Number(s): [id number] ? cc: Name,Perry HENRY; Benjamin Duval NP [...] DD/ 0830 ? TD/TT: 06/27/24 1230 ? Funeral Car Driver: ? Procedure Note Georgejustino, Image - 06/27/2024 [place] [id number] Nuclear Medicine Report Signed Patient: Gregg Burch#: [id number] : 1965Acct:[id number] Age/Sex: 59 / MADM Date: 06/26/24 Loc: LOLI Attending Dr: Benjamin Duval NP Ordering Physician: Benjamin Duval NP Date of Service: 06/26/24 Procedure(s): NM cardiolite stress test Accession Number(s): [id number] cc: Perry Oneli MD; Benjamin Duvla NP Lexiscan Myocardial perfusion study Indication: Chest [...] 06/27/24 1558 DD/ 0830 TD/TT: 06/27/24 1230 Funeral Car Driver: [facility] External Provider CV STRE SS PROCEDURES Final Result Performing Organization Address City/[facility]/ZIP Co de Phone Number [facility] [address] [place] [address] * Hepatitis C Antibody with Reflex to HCV, RNA, Quantitative, Real-Time PCR (12/05/2023 10:18 AM EDT) Hepatitis C Antibody Nonreactive Nonreactive [facility] Comment:Antibodies to HCV no t detected; does not exclude early acuteHCV infection. Blood Venous blood specimen / Unknown 12/05/2023 10:18 AM EDT 12/05/2023 11:38 AM EDT us Perry Oneil MD LAB BLOOD ORDERABLES Final Resul t Performing Organization Address [facility] Co de Phone Number [facility] [address] [place] [address] [phone] * (ABNORMAL) Lipid Panel, Standard (12/05/2023 10:18 AM EDT) Triglycerides 83 <150 mg/dL [facility] Comment:Desirable Triglyceri de: less than 150 mg/dLBorderline High Triglyceride 150-199 mg/dLHigh Triglyceride: 200-499 mg/dLVery High Triglyceride: greater than or equal to 5OO mg/dL Cholesterol 180 <200 mg/dL [facility] Comment:Desirable Cholestero l: less than 200 mg/dLBorderline High Cholesterol: 200-239 mg/dLHigh Cholesterol: greater than 239 mg/dL LDL Cholesterol Calculated 112(H) <100 mg/dL [facility] Comment:Desirable LDL: less than 100 mg/dLNear Optimal/Above Optimal LDL: 110- 129 mg/dLBorderline High LDL: 130-159 mg/dLHigh LDL: 160-189 mg/dLVery High LDL: greater than or equal to 190 mg/dL HDL Cholesterol 52 >40 mg/dL [facility] Comment:Desirable HDL: great er than 40 mg/dL Note: This HDL assay may give artificially low results in patients with liver disease. Blood Venous blood specimen / Unknown 12/05/2023 10:18 AM EDT 12/05/2023 11:38 AM EDT Perry Oneil MD LAB BLOOD ORDERABLES Final Resul t [facility] [address] [place] [address] [phone] * Hm Colonoscopy (05/19/2016 4:01 PM EST) Colonoscopy Normal Normal Comment:repeat 05/2026 Perry Oneil MD HEALTH MAINTENANCE Final Result from Last 3 Months or Most Recently Relevant to Health Maintenance Insurance [employer] Care Teams Brazing Machine Operator Relationship Specialty Start Date End Date Name, MD Perry [address] [place] [address] PCP - General Family Medicine 11/30/15
--- OUTSIDE RECORDS SUMMARY | 2024-08-09 10:34 | XMS_ITS | Encounter Summary ---
Author Organization [employer] Address [address] [facility] 7 [place] [address] Care Team Providers Care Homemaker Companion Name Role Phone Name, Perry HENRY Primary Care Provider [phone] Reason for Visit * Reason Onset Date Comments chartprep 08/07/2024 Encounter Details Date Type Department Care Team ([facility] Contact Info) Description 08/07/2024 Telephone [facility] [address] [place], [place] [phone] Name, MD Perry [address] [place] [address] chartprep Social History Tobacco Use Types Packs/Day Years [...] AM EDT documented as of this encounter Miscellaneous Notes * Telephone Encounter - Kristin Sanders MA - 08/07/2024 2:42 PM EST Chart Prep Labs: not applicable Images: not applicable Vaccines due: yes Covid, hep b, and pcv20. Referrals: HIV Screenings: n/a Overdue care gaps: none documented in this encounter Plan of Treatment Upcoming Encounters Date Type Department Care Team (Late st Contact Info) Description 08/12/2024 1:30 PM EST Office Visit [facility] [address] [place] [phone] Name, MD Perry [address] [place] [address] documented as of this encounter Visit Diagnoses Not on filedocumented in this encounter Additional Health Concerns Assessment Noted Time PHQ-9 Depression Total Score: 0 12/05/19 24 9:19 AM EDT documented as of this encounter Care Teams Homemaker Companion Relationship Specialty Start Date End Date Name, MD Perry [address] [place] [phone] PCP - General Family Medicine 11/30/15 documented as of this encounter
[2024-08-09 14:38] LABS: Anion Gap 11 (12-20); Blood Urea Nitrogen 13 mg/dL (9-16); Calcium 9.1 mg/dL (8.4-10.2); Carbon Dioxide 25 mmol/L (22-29); Chloride 109 mmol/L (96-108); Estimated Glomerular Filt Rate > 60; Glucose Random 103 mg/dL (60-115); Potassium 3.7 mmol/L (3.3-5.1); Sodium 141 mmol/L (135-145)
== END 2024-08-09 09:46 | disposition home or self-care (01) ==
LOC: HO.HMGCLDS 09:45
PROVIDERS: PCP Internal Medicine Geriatric Medicine
DX: R07.2 Precordial pain (principal)
CPT/HCPCS: 36415; 80048

== ENCOUNTER 2024-09-17 06:30 | Outpatient (REF) | payer OTHER, SELFPAY ==
--- NOTE | ~2024-09-17 | FL_ITS ---
EXAMINATION: FL GUIDANCE ONLY HISTORY: M54.50 - Low back pain, unspecified COMPARISON: None available. TECHNIQUE: Fluoroscopy time: 9.9 seconds. Cumulative Dose: 3.6275 mGy. DAP: 1.5779 mGym2 Images: 2. FINDINGS: Images demonstrate placement of an electrode in the lumbar region. FL/FL guidance in treatment room IMPRESSION: Fluoroscopy during procedure. Please see procedure report for additional information. Electronically signed by: Sebastian Black MD 09/17/2024 03:48 PM EDT
--- OUTSIDE RECORDS SUMMARY | 2024-09-17 06:34 | XMS_ITS | Clinical Summary ---
Author Organization [facility] Address [address] [place] [phone] Care Team Providers Care Fishing Captain Name Role Phone Name, Perry HENRY Primary Care Provider [phone] Surgical History Surgery Date Site/Laterality Comments TONSILLECTOMY PROCEDURE: HISTORICAL TONSILLECTOMY Family History Relation Name Status Comments Brother 1 Alive DM Brother 2 Alive Daughter Alive Father Alive High cholestero l Maternal Grandmother [place] at a ge 80. Mother Alive DM, [...] 2024 Influenza Vaccine (#1) 2024 RSV Immunization Adult Patie nts (1 - 1-dose 75+ series) 2040 HIB [...] age to complete this topic Meningococcal B Vaccine Aged Out No l onger eligible based on patient's age to complete [...] age to complete this topic Care Teams Fishing Captain Relationship Specialty Start Date End Date Name, MD Perry [address] [place] [address] PCP - General 09/07/06
--- OUTSIDE RECORDS SUMMARY | 2024-09-17 06:35 | XMS_ITS | Patient Health Record ---
Author Organization [employer] Address [address] [facility] [address] [place] [address] Care Team Providers Care Auto Garage Mechanic Name Role Phone Shanice Cardenas Primary Care Provider [phone] Allergies No Known Allergies Reason For Referral No Information Plan Of Treatment No Information Insurance Providers Payer Name Payer Address Payer Phone Subscriber Number Group Number Insured Name Patient Relationship to Insured Coverage Start Date Coverage End Date [facility] [address] [place] [address] [id number] Rocco Kathleen Self - patient is the insured
--- OUTSIDE RECORDS SUMMARY | 2024-09-17 06:35 | XMS_ITS | Clinical Summary ---
Author Organization [employer] Address [address] [facility] 7t [place] [address] Care Team Providers Care Methods Engineer Name Role Phone Name, Perry HENRY Primary Care Provider [phone] Allergies No known active allergies Medications atorvastatin [...] if needed for muscle spasms. 90 tablet 5 Active celecoxib (CeleBREX) 200 MG capsule Take 1 capsule (200 mg) by mouth 2 times daily for 20 days. 40 capsule 2 5 09/02/19 25 Active Problems Problem Noted Date Diagnosed Date History of colonoscopy 11/21/2022 Overview (11/21/2022): Normal for colon [place] [facility]2016 Obstructive sleep apnea syndrome 06/14/2017 Acute low back pain 11/30/2015 Genital herpes 08/19/2011 DJD (degenerative joint disease) of knee 011 Encounters Date Type Department Care Team Description 08/19/2024 Telephone [facility] [address] [place] [address] Perry Oneil MD No Show 08/12/2024 1:30 PM EST Office Visit [facility] [address] [place] [address] Perry Oneil MD Chronic left-sided low back pain without sciatica (Primary Dx); Atypical chest pain; Elevated blood pressure reading 08/12/2024 Travel 08/09/2024 Orders Only GENERIC EXTERNAL DATA DEPARTMENT Provider, Generic External Data 08/07/2024 Telephone [facility] MED & PEDS [address] [place] [address] Perry Oneil MD chartprep 08/02/2024 Patient Outreach [facility] [address] [place] [address] Perry Oneil MD Care Coordination (CH[facility] outreach for SDOH housing search-referral completed ) 08/02/2024 Patient Outreach [facility] [address] [place] [address] Perry Oneil MD Pre-visit Planning (SDOH positive, Tobacco screening negative) 06/26/2024 Orders Only [facility] External Provider, [facility] from Last 3 Months Immunizations Name Administration [...] Sign Reading Time Taken Comments Blood Pressure 156/99 08/12/2024 1:31 PM EST Pulse 71 08/12/2024 1:31 PM EST Temperature 36.9 ??C (98.5 ??F) 08/12/2024 1:31 PM ES T Respiratory Rate 21 08/12/2024 1:31 PM EST Oxygen Saturation 98% 08/12/2024 1:31 PM EST Inhaled Oxygen Concentration - - Weight 96.8 kg (213 lb 6.4 oz) 08/12/2024 1:31 P M EST Height 167.6 cm (5' 6 ) 08/12/2024 1:31 PM EST Body Mass Index 34.44 08/12/2024 1:31 PM EST Plan of Treatment Upcoming Encounters Date Type Department Care Team (Late st Contact Info) Description 11/26/2024 1:00 PM EDT Office Visit [facility] [address] [place] [phone] Name, MD Perry [address] [place] [address] Health Maintenance Due Date Last Done Comments CT Colonography 1965 FIT DNA/Cologuard 1965 FIT 1965 FOBT 1965 HIV Screening 1965 Sigmoidoscopy 1965 Hepatitis B Vaccines (1 of 3 - 19+ 3-dose series) 1984 Pneumococcal Vaccine: 50+ Years (1 of 1 - PCV) 2015 COVID-19 Vaccine (4 - 2023-2 5 season) 2024 04/24/2021, 10/07/2020, 09/09/2020 Alcohol/Substance [...] Procedure Name Priority Date/Time Associated Diagnosis Comments BASIC METABOLIC PANEL Routine 08/09/2024 10:43 AM EST STRESS TEST WITH MYOCARDIAL PERFUSION Routine 06/26/2024 [...] Recently Relevant to Health Maintenance Results * (ABNORMAL) Basic Metabolic Panel (08/09/2024 10:43 AM EST) Sodium 141 135 - 145 mmol/L [facility] Potassium 3.7 3.3 - 5.1 mmol/L [facility] Chloride 109(H) 96 - 108 mmol/L [facility] Carbon Dioxide 25 22 - 29 mmol/L [facility] Anion Gap 11(L) 12 - 20 [facility] Urea Nitrogen (BUN) 13 9 - 16 mg/dL [facility] Creatinine, Serum 0.72 0.5 - 1.4 mg/dL [facility] Estimated Glomerular Filt Rate >60 [facility] Comment:Chronic Kidney Disea se: Estimated GFR < 60 mL/min/1.70t5Xricey Kidney Disease: Estimated GFR < 15 mL/min/1.73m2 Glucose 103 60 - 115 mg/dL [facility] Calcium 9.1 8.4 - 10.2 mg/dL [facility] 08/09/2024 10:4 3 AM EST 08/09/2024 1:14 PM EST us Generic External Data Provider LAB BLOOD ORDERAB LES Final Result [facility] [address] [place] [address] [phone] * Stress test with myocardial perfusion (06/26/2024 8:30 AM EST) 06/26/2024 8:30 AM EST Narrative [facility] - 06/27/2024 4:01 PM EST ? [facility] ?[address] ?[place], [place] [address] ?Nuclear Medicine Report ? Signed ? Patient: Burch,Rocco ?MR#: [id number] ? : 1965 ?Acct:[id number] ? Age/Sex: 59 / M ?ADM Date: 06/26/24 ? Loc: HO.CARD ? Attending Dr: Benjamin Duval NP ? Ordering Physician: Benjamin Duval NP ?? Date of Service: 06/26/24 ?? Procedure(s): NM cardiolite stress test ?? Accession Number(s): [id number] ? cc: Clarice,Perry HENRY; Benjamin Duval NP [...] DD/ 0830 ? TD/TT: 06/27/24 1230 ? It Project Lead: ? Procedure Note Kathryn, Image - 06/27/[address] [address] Nuclear Medicine Report Signed Patient: Gregg Burch#: [id number] : 1965Acct:[id number] Age/Sex: 59 / MADM Date: 06/26/24 Loc: LOLI Attending Dr: Benjamin Duval NP Ordering Physician: Benjamin Duval NP Date of Service: 06/26/24 Procedure(s): NM cardiolite stress test Accession Number(s): [id number] cc: Perry Oneil MD; Benjamin Duval NP [...] 06/27/24 1558 DD/ 0830 TD/TT: 06/27/24 1230 It Project Lead: [facility] External Provider CV STRE SS PROCEDURES Final Result Performing Organization Address City/[facility]/ZIP Co de Phone Number [facility] [address] [place] [address] * Hepatitis C Antibody with Reflex to HCV, RNA, Quantitative, Real-Time PCR (12/05/2023 10:18 AM EDT) Hepatitis C Antibody Nonreactive Nonreactive [facility] Comment:Antibodies to HCV no t detected; does not exclude early acuteHCV infection. Blood Venous blood specimen / Unknown 12/05/2023 10:18 AM EDT 12/05/2023 11:38 AM EDT Perry Oneil MD LAB BLOOD ORDERABLES Final Resul t Performing Organization Address [facility] Co de Phone Number [facility] [address] [place] [phone] * (ABNORMAL) Lipid Panel, Standard (12/05/2023 10:18 AM EDT) Triglycerides 83 <150 mg/dL [facility] Comment:Desirable Triglyceri de: less than 150 mg/dLBorderline High Triglyceride 150-199 mg/dLHigh Triglyceride: 200-499 mg/dLVery High Triglyceride: greater than or equal to 5OO mg/dL Cholesterol 180 <200 mg/dL [facility] Comment:Desirable Cholestero l: less than 200 mg/dLBorderline High Cholesterol: 200-239 mg/dLHigh Cholesterol: greater than 239 mg/dL LDL Cholesterol Calculated 112(H) <100 mg/dL [facility] Comment:Desirable LDL: less than 100 mg/dLNear Optimal/Above Optimal LDL: 110- 129 mg/dLBorderline High LDL: 130-159 mg/dLHigh LDL: 160-189 mg/dLVery High LDL: greater than or equal to 190 mg/dL HDL Cholesterol 52 >40 mg/dL [facility] Comment:Desirable HDL: great er than 40 mg/dL Note: This HDL assay may give artificially low results in patients with liver disease. Blood Venous blood specimen / Unknown 12/05/2023 10:18 AM EDT 12/05/2023 11:38 AM EDT us Perry Oneil MD LAB BLOOD ORDERABLES Final Resul t [facility] [address] [place] [address] [phone] * Hm Colonoscopy (05/19/2016 4:01 PM EST) Colonoscopy Normal Normal Comment:repeat 05/2026 Perry Oneil MD HEALTH MAINTENANCE Final Result from Last 3 Months or Most Recently Relevant to Health Maintenance Insurance [employer] [place] [address] Care Teams Methods Engineer Relationship Specialty Start Date End Date Name, MD Perry [address] [place] [address] PCP - General Family Medicine 11/30/15
== END 2024-09-17 06:31 | disposition home or self-care (01) ==
LOC: CF 06:30
PROVIDERS: Visit Provider Anesthesiology
DX: Z45.1 Encounter for adjustment and management of infusion pump (principal); M54.50 Low back pain, unspecified
CPT/HCPCS: 64555; C1778; J2003

== ENCOUNTER 2024-09-17 13:42 | Outpatient (AMB) | payer OTHER, SELFPAY ==
[2024-09-17 13:48] VITALS: BP 140/83; PULSE 63; RESP 16; O2SAT 97
--- NOTE | 2024-09-17 13:48 | MHC.OFFVIS ---
Vital Signs 09/17/24 13:48 09/17/24 14:18 BP 140/83 H 135/69 Blood Pressure Location Lt brachial Lt brachial Position Sitting Sitting Respiration 16 16 Pulse 63 65 Pulse Source Pulse Oximeter Pulse Oximeter Pulse Oximetry (%) 97 98 Oxygen Delivery Method Room Air Room Air Intake Visit Reasons: LEFT L4 (POSS L3, POSS L5) SPRINT PNS TRIAL/ATIVAN Neonatal Critical Care Nurse Required: No Allergies No Known Allergies [No Known Allergies*] Allergy (Verified 09/17/24 13:48) Medication List - Last Reconciled 09/17/24 by Mirna Perry LPN atorvastatin 20 mg PO DAILY lorazepam (Ativan) 1 mg PO ONCE lorazepam (Ativan) 1 mg PO ONCE methocarbamol 750 mg PO TID PRN PFSH Medical History Thrombosed external hemorrhoids Family History Mother Diabetes Father Diabetes Stroke Pacemaker Social History Alcohol intake: never Patient Tobacco Use Status: Never used Tobacco Physical Exam Vital Signs: Last Vital Signs Pulse 65 09/17/24 14:18 Resp 16 09/17/24 14:18 BP 135/69 09/17/24 14:18 Pulse Ox 98 09/17/24 14:18 Oxygen Delivery Method Room Air 09/17/24 14:18 Assessment & Plan Assessment & Plan (1) Spondylosis of lumbar region without myelopathy or radiculopathy: Code(s): M47.816 - Spondylosis without myelopathy or radiculopathy, lumbar region Category: Medical Plan Percutaneous implantation of peripheral nerve stimulation Sprint system L5 left side. After the risks, benefits and alternatives were discussed with the patient and informed consent was obtained, patient was placed in the prone position and padded to foster comfort. Time out was performed delineating correct site and side of the procedure , name and of the patient, patient participated in time out procedure. C-arm was brought over the operating field and sq picture of the lower lumbar vertebra were demonstrated on the screen. Upper border of L4 lamina on the left projection to the skin was chosen as the starting point of the injection. It was injected with lidocaine 2% mixed with ropivacaine 0.5% one-to-one forming a skin wheal. A percutaneous sleeve and stimulating probe lead introduction system were assembled, inserted and advanced through the skin wheal to the point of interest under C-arm view L5 left lamina, the introducer needle was delivered to a location in proximity to the nerve. Multiple stimulation parameters were used to deliver stimulation to the nerve in concert with stimulating at multiple positions around the nerve. The nerve target acquisition was confirmed noting generation of in the corresponding to the nerve being stimulated. Various electrical parameter combinations were tested, and the lead location was adjusted (physically relocated) until the patient indicated overlapping the distribution of the patient?s typical region of pain. The stimulating probe was removed from the introducer and a percutaneous lead was guided through the needle and delivered to a location in similar proximity to the nerve. Final location was verified with electrical stimulation. The introducer needle was removed, and the exposed end of the percutaneous lead was attached to an external stimulator unit. At the end of the case various electrical parameter combinations were again tested until the patient indicated paresthesia or muscle tension overlapping the distribution of the patient?s typical region of pain. After confirming that lead impedance was in the normal range, the external unit was detached, the needle was removed, and the lead was anchored at the skin. The lead was threaded into the connector block and electrical continuity and desired patient response was confirmed. The connector block was attached to the external stimulator unit. The site was covered with a sterile occlusive dressing and a image was taken to document final placement. Upon completion of the procedure the patient was taken outside the OR where she recovered uneventfully she went home without immediate complications. Orders: Orders FL guidance in treatment room 09/17/24 M54.50 - Low back pain, unspecified Medications: New lorazepam (Ativan) Take 30 minutes prior to arrival to procedure 1 mg PO ONCE 1 tab 0RF anxiety Coding Level of Care Code Procedure Only Diagnoses Spondylosis of lumbar region without myelopathy or radiculopathy M47.816
[2024-09-17 14:18] VITALS: BP 135/69; PULSE 65; RESP 16; O2SAT 98
--- OUTSIDE RECORDS SUMMARY | 2024-09-17 16:40 | XMS_ITS | Clinical Summary ---
Author Organization [facility] Address [address] [place] [phone] Care Team Providers Care Elevator Troubleshooter Name Role Phone Name, Perry HENRY Primary Care Provider [phone] Surgical History Surgery Date Site/Laterality Comments TONSILLECTOMY PROCEDURE: HISTORICAL TONSILLECTOMY Family History Relation Name Status Comments Brother 1 Alive DM Brother 2 Alive Daughter Alive Father Alive High cholestero l Maternal Grandmother [place] at a ge 80. Mother Alive DM, [...] age to complete this topic Care Teams Elevator Troubleshooter Relationship Specialty Start Date End Date Name, MD Perry [address] [place] [address] PCP - General 09/07/06
--- OUTSIDE RECORDS SUMMARY | 2024-09-17 16:40 | XMS_ITS | Clinical Summary ---
Author [employer] Address [address] [facility] 7t [place] [address] Care Team Providers Care Finisher Hand Name Role Phone Name, Perry HENRY Primary Care Provider [phone] Allergies No known active allergies Medications atorvastatin [...] for colon CA screening [place] [facility] Obstructive sleep apnea syndrome 06/14/2017 Acute low back pain 11/30/2015 Genital herpes 08/19/2011 DJD (degenerative joint disease) of knee 011 Encounters Date Type Department Care Team Description 08/19/2024 Telephone [facility] [address] [place] [address] Perry Oneil MD No Show 08/12/2024 1:30 PM EST Office Visit [facility] [address] [place] [address] Perry Oneil MD Chronic left-sided low back pain without sciatica (Primary Dx); Atypical chest pain; Elevated blood pressure reading 08/12/2024 Travel 08/09/2024 Orders Only GENERIC EXTERNAL DATA DEPARTMENT Provider, Generic External Data 08/07/2024 Telephone [facility] & PED[facility] [address] [place] [address] Perry Oneil MD chartprep 08/02/2024 Patient Outreach [facility] [address] [place] [address] Perry Oneil MD Care Coordination ([facility] outreach for SDOH housing search-referral completed ) 08/02/2024 Patient Outreach [facility] [address] [place] [address] Perry Oneil MD Pre-visit Planning (SDOH positive, Tobacco screening negative) 06/26/2024 Orders Only [facility] External Provider, [facility] from Last 3 Months Immunizations Name [...] Description 11/26/2024 1:00 PM EDT Office Visit [facility] [address] [place] [phone] Name, MD Perry [address] [place] [address] Health Maintenance Due Date Last Done Comments [...] EST) Sodium 141 135 - 145 mmol/L [facility] Potassium 3.7 3.3 - 5.1 mmol/L [facility] Chloride 109(H) 96 - 108 mmol/L [facility] Carbon Dioxide 25 22 - 29 mmol/L [facility] Anion Gap 11(L) 12 - 20 [facility] Urea Nitrogen (BUN) 13 9 - 16 mg/dL [facility] Creatinine, Serum 0.72 0.5 - 1.4 mg/dL [facility] Estimated Glomerular Filt Rate >60 [facility] Comment:Chronic Kidney Disea se: Estimated GFR < 60 mL/min/1.37n1Bgzmel Kidney Disease: Estimated GFR < 15 mL/min/1.73m2 Glucose 103 60 - 115 mg/dL [facility] Calcium 9.1 8.4 - 10.2 mg/dL [facility] 08/09/2024 10:4 3 AM EST 08/09/2024 1:14 PM EST us Generic External Data Provider LAB BLOOD ORDERAB LES Final Result [facility] [address] [place] [phone] * Stress test with myocardial perfusion (06/26/2024 8:30 AM EST) 06/26/2024 8:30 AM EST Narrative [facility] - 06/27/2024 4:01 PM EST ? [facility] ?[address] ?[place], [place] [address] ?Nuclear Medicine Report ? Signed ? Patient: Burch,Rocco ?MR#: [id number] ? : 1965 ?Acct:[id number] ? Age/Sex: 59 / M ?ADM Date: 06/26/24 ? Loc: HO.CARD ? Attending Dr: Benjamin Duval NP ? Ordering Physician: Benjamin Duval NP ?? Date of Service: 06/26/24 ?? Procedure(s): NM cardiolite stress test ?? Accession Number(s): [id number] ? cc: Clarice,Perry HENRY; Benjamin Duval NP [...] DD/ 0830 ? TD/TT: 06/27/24 1230 ? Senior Technical Business Analyst: ? Procedure Note Kathryn, Image - 06/27/[address] [address] Nuclear Medicine Report Signed Patient: Gregg Burch#: [id number] : 1965Acct:[id number] Age/Sex: 59 / MADM Date: 06/26/24 Loc: LOLI Attending Dr: Benjamin Duval NP Ordering Physician: Benjamin Duval NP Date of Service: 06/26/24 Procedure(s): NM cardiolite stress test Accession Number(s): [id number] cc: Perry Oneil MD; Benjamin Duval NP [...] 06/27/24 1558 DD/ 0830 TD/TT: 06/27/24 1230 Senior Technical Business Analyst: [facility] External Provider CV STRE SS PROCEDURES Final Result Performing Organization Address City/[facility]/ZIP Co de Phone Number [facility] [address] [place] [address] * Hepatitis C Antibody with Reflex to HCV, RNA, Quantitative, Real-Time PCR (12/05/2023 10:18 AM EDT) Hepatitis C Antibody Nonreactive Nonreactive [facility] Comment:Antibodies to HCV no t detected; does not exclude early acuteHCV infection. Blood Venous blood specimen / Unknown 12/05/2023 10:18 AM EDT 12/05/2023 11:38 AM EDT Perry Oneil MD LAB BLOOD ORDERABLES Final Resul t Performing Organization Address [facility] Co de Phone Number [facility] [address] [place] [phone] * (ABNORMAL) Lipid Panel, Standard (12/05/2023 10:18 AM EDT) Triglycerides 83 <150 mg/dL [facility] Comment:Desirable Triglyceri de: less than 150 mg/dLBorderline High Triglyceride 150-199 mg/dLHigh Triglyceride: 200-499 mg/dLVery High Triglyceride: greater than or equal to 5OO mg/dL Cholesterol 180 <200 mg/dL [facility] Comment:Desirable Cholestero l: less than 200 mg/dLBorderline High Cholesterol: 200-239 mg/dLHigh Cholesterol: greater than 239 mg/dL LDL Cholesterol Calculated 112(H) <100 mg/dL [facility] Comment:Desirable LDL: less than 100 mg/dLNear Optimal/Above Optimal LDL: 110- 129 mg/dLBorderline High LDL: 130-159 mg/dLHigh LDL: 160-189 mg/dLVery High LDL: greater than or equal to 190 mg/dL HDL Cholesterol 52 >40 mg/dL [facility] Comment:Desirable HDL: great er than 40 mg/dL Note: This HDL assay may give artificially low results in patients with liver disease. Blood Venous blood specimen / Unknown 12/05/2023 10:18 AM EDT 12/05/2023 11:38 AM EDT us Perry Oneil MD LAB BLOOD ORDERABLES Final Resul t [facility] [address] [place] [address] [phone] * Hm Colonoscopy (05/19/2016 4:01 PM EST) Colonoscopy Normal Normal Comment:repeat 05/2026 Perry Oneil MD HEALTH MAINTENANCE Final Result from Last 3 Months or Most Recently Relevant to Health Maintenance Insurance [employer] [place] [address] Care Teams Finisher Hand Relationship Specialty Start Date End Date Name, MD Perry [address] [place] [address] PCP - General Family Medicine 11/30/15
== END 2024-09-17 14:25 | disposition home or self-care (01) ==
LOC: HO.PMCPRC 13:42
PROVIDERS: PCP Internal Medicine Geriatric Medicine; Visit Provider Anesthesiology
DX: M47.816 Spondylosis without myelopathy or radiculopathy, lumbar region (principal)
CPT/HCPCS: 64555

== ENCOUNTER 2024-09-25 12:44 | Outpatient (AMB) | payer OTHER, SELFPAY ==
--- NOTE | 2024-09-25 12:50 | A.OFFVIS_ITS ---
Vital Signs 09/25/24 12:52 Height 5 ft 6 in Weight 209 lb BMI 33.7 BP 191/101 H Blood Pressure Location Lt brachial Position Sitting Respiration 16 Pulse 80 Pulse Source Pulse Oximeter Pulse Oximetry (%) 97 Oxygen Delivery Method Room Air Intake Visit Reasons: LEFT L4 SPRINT PNS TRIAL Intake Note: Pt's BP grossly elevated, he states he has white coat syndrome Allergies No Known Allergies [No Known Allergies*] Allergy (Verified 09/25/24 12:53) Medication List - Last Reconciled 09/25/24 by Mirna Perry LPN atorvastatin 20 mg PO DAILY lorazepam (Ativan) 1 mg PO ONCE lorazepam (Ativan) 1 mg PO ONCE methocarbamol 750 mg PO TID PRN HPI Comments Details: The patient is a 59-year-old male presenting for follow up, 1 week s/p left lumbar Sprint PNS. Since the procedure suffering with persistent right leg pain, intensifying over several days, and has been significantly impacting his sleep and general mobility. The discomfort radiates from the hip down to the knee and is described as an irritation that was not resolved with previously attempted interventions, such as unspecified medical devices and conservative therapies. The patient received diagnostic MBB injections which initially offered relief, although temporal. Steroid injections were considered, but potential complications involving blood sugar levels were discussed. Presently, the patient is experiencing numbness in the leg, fluctuating with certain adjustments and removal of medical aids. Potential interventions like rad iofrequency ablation were discussed as additional options. The conversation noted the influence of his condition on social and emotional aspects, especially considering disturbances caused at night. Management with current medication, such as methocarbamol, provides partial relief. - Location: Radiates from hip to knee - Onset and Timing: Pain has persisted over multiple days; severe at night - Quality and Character: Constant, irritating pain, described as aggravating - Exacerbating Factors: Nocturnal disturbances, standing, and walking - Relieving Factors: None sufficient, relief noted with past injections; partial relief with current medications - Interfering Activities: Sleep, normal walking, and general mobility - Affect: Pain impacts sleep and appears to induce psychological stress, leading to nocturnal activities that disturb his partner - Analgesia: Receiving injections in the past, currently using methocarbamol - Adverse Effects: No specific side effects from pain medications noted aside from continued numbness in the leg - Activities of Daily Living: Difficulty with sleep and walking due to pain; affecting quality of life - Aberrant Drug-Related Behaviors: No indication of medication misuse discussed Prior: Patient presents back to the office today for follow-up, 1 month status post bilateral L4-5 transforaminal epidural steroid injection He reports 100% improvement in his radicular pain. 50% improvement in axial back pain. Continues with midline lower back pain without radiation down either lower extremity. Worse with sitting, transitioning from sit to stand, twisting, bending Has been taking methocarbamol 500 mg as needed with some improvement. Denies red flag symptoms including new loss of bowel, bladder or saddle anesthesia Pain today is rated as a 7/10, constant, axial back pain Prior: Rocco is a very pleasant 58-year-old male who presents to the office today, accompanied by his , for evaluation management of his lower back pain Has been suffering with this pain for approximately 8 weeks, started after injury while moving furniture Initially evaluated at the walk-in center, x-ray was performed patient prescribed NSAIDs and muscle relaxers. He was then evaluated by his primary care doctor, MRI was performed and patient started physical therapy He endorses minimal, short-term improvement of his pain with medications but no improvement after physical therapy Endorses midline lower back pain with intermittent radiation down both lower extremities, right worse than left. Pain is exacerbated by bending, sitting, walking, standing Endorses tingling the lower extremities and shooting pain Denies red flag symptoms including new loss of bowel, bladder or saddle anesthesia Recent x-ray and MRI reviewed, results as per below Pain today is rated as a 6/10, constant and worse in the mornings In terms of muscle damage condition is described as pulsing, throbbing, pounding, cramping, pinching, stabbing, sharp, tingling Pain is negatively impacting patient's sleep, ability for activities of daily living, ability to function normally, work. He has been out of work since the injury. Denies current use of anticoagulants. Denies implantable devices, pacemaker defibrillator Denies alcohol or illicit substance use [facility] Medical History Thrombosed external hemorrhoids Family History Mother Diabetes Father Diabetes Stroke Pacemaker Social History Alcohol intake: never Patient Tobacco Use Status: Never used Tobacco Review of Systems Const Details: - Neurologic: Reports leg pain and numbness - Musculoskeletal: Reports leg discomfort affecting movements - Psychiatric: Reports sleep disturbances due to pain Physical Exam Vital Signs: Last Vital Signs Pulse 80 09/25/24 12:52 Resp 16 09/25/24 12:52 BP 191/101 H 09/25/24 12:52 Pulse Ox 97 09/25/24 12:52 Oxygen Delivery Method Room Air 09/25/24 12:52 BMI result Body Mass Index 33.7 General: awake, alert, oriented. Answers questions appropriately. Fully engaged in examination. Skin: warm, dry, intact HEENT: Normocephalic. Hearing intact. Cardiac: External chest normal in appearance. Respiratory: No cough, audible wheezing or stridor. Abdomen: without gross distension. MS: No obvious swelling or deformities. Able to transition from sit to stand unassisted. Ambulates with bilaterally normal heel strike and toe off Neurological: Oriented to person, place, time and situation. Thought process intact. No gait abnormalities appreciated. Psychiatric: Appropriate mood and affect. Good judgment and insight. Sprint removal: Dressing removed, Site dry, clean, intact. Area cleansed with c hloraprep, lead removed with intact tip. Area cleansed again with chloraprep, bacitracin dressing with tegaderm applied. Patient tolerated removal well. Reports improvement in back and left leg pain immediately after removal of Sprint lead. Results Reviewed Results Reviewed: 12/29/23 MRI of the lumbar spine FINDINGS: There are 5 nonrib-bearing lumbar-type vertebrae. Rudimentary disc at S1-2. Mild retrolisthesis at L5-S1. The vertebral body heights are preserved. Multilevel disc desiccation with severe disc height loss at L5-S1. Subacute endplate changes at L5-S1. Multilevel endplate osteophytosis. The visualized spinal cord is normal in caliber. No abnormal cord signal. The conus medullaris terminates at L1. T12-L1: No significant spinal canal or neural foraminal narrowing. L1-2: No significant spinal canal or neural foraminal narrowing. L2-3: No significant spinal canal or neural foraminal narrowing. L3-4: Bilateral facet arthrosis. No significant spinal canal or neural foraminal narrowing. Small right perineural cyst. L4-5: Diffuse disc bulge with superimposed annular fissure. Bilateral facet arthrosis. No significant spinal canal stenosis. Mild bilateral neural foraminal narrowing with the disc abutting the exiting L4 nerve roots bilaterally. L5-S1: Diffuse disc bulge with superimposed shallow left paracentral disc protrusion. No significant spinal canal stenosis. Mild to moderate right greater than left neural foraminal narrowing with the disc abutting the exiting L5 nerve roots. The paravertebral soft tissues are unremarkable. MR/MR lumbar spine wo con IMPRESSION: -Mild retrolisthesis at L5-S1 with severe disc height loss and subacute endplate changes. -No significant spinal canal stenosis. -Mild to moderate bilateral neural foraminal narrowing at L4-L5 and L5-S1 with the disc abutting the exiting L4 and L5 nerve roots. -Annular fissure at L4-5. 12/25/23 IMPRESSION: * Grade 1 retrolisthesis of L5 on S1 with associated severe degenerative disc disease. * Mild degenerative disc disease at L4-L5. * Moderate facet arthropathy in mid and lower lumbar spine. Assessment & Plan Assessment & Plan (1) Lower back pain: Code(s): M54.50 - Low back pain, unspecified Category: Medical (2) Lumbar radiculopathy: Code(s): M54.16 - Radiculopathy, lumbar region Category: Medical Plan The primary management of the patient's chronic back pain involves considering radiofrequency ablation for longer-term relief, given past responses to injections. A short course of prednisone will be initiated to address acute inflammatory symptoms, with the patient monitoring his response. Continued methocarbamol use is encouraged, offering some symptom relief. Steroid injections remain a secondary option should further intervention be necessary, balancing their duration and metabolic effects. All efforts are aimed at stabilizing the patient's current condition and improving his functional capacity, postponing any consultations until an adequate response is observed. I discussed with the patient the benefits and process of radiofrequency ablation, highlighting its potential as a more enduring solution to his pain compared to temporary injections. Emphasis was placed on precise needle placement during the procedure, supported by his real-time feedback. I outlined the limited duration of relief steroids provide, alongside potential metabolic effects, aligning on their use only if necessary. I proposed a brief prednisone course to reduce inflammation, explaining its expected short duration and efficacy. The patient should experience symptomatic improvement shortly after beginning therapy. The importance of gradually stepping up pain interventions with ongoing assessment and the need to reschedule a follow-up when symptoms settle were reiterated. It's essential to cancel any planned appointments that no longer align with our current management pathway. Patient was informed and verbally consented to the use of an ambient scribe for clinic note documentation during this visit. Medications: New prednisone 40mg once daily for 5 days 40 mg (2 x 20 mg) PO DAILY 5 days 10 tabs 0RF Patient Instructions: - Begin a short course of prednisone as prescribed to reduce inflammation. - Continue methocarbamol for symptomatic relief as required. - Monitor leg pain and numbness; contact us if symptoms don't improve. - Avoid disrupting usual sleep patterns where possible; adjust sleeping arrangements as needed. - Schedule follow-up once symptoms stabilize or if further intervention is contemplated. - Rest and avoid activities that exacerbate pain; seek care if severe pain or new symptoms develop. Coding Level of Care Code Est Pt Level 3 (47382) Complex EM visit Add On G2211 Diagnoses Lower back pain M54.50 Lumbar radiculopathy M54.16
[2024-09-25 12:52] VITALS: BP 191/101; PULSE 80; RESP 16; O2SAT 97; BMI 33.7
--- OUTSIDE RECORDS SUMMARY | 2024-09-25 15:05 | XMS_ITS | Clinical Summary ---
Author Organization [facility] Address [address] [place] [address] Care Team Providers Care Jumbo Operator Name Role Phone Name, Perry HENRY Primary Care Provider [phone] Allergies No known active allergies Medications atorvastatin [...] (11/21/2022): Normal for colon CA screening at [facility] [place] with Dr Hood in 05/2016 Obstructive sleep apnea syndrome 06/14/2017 Acute low back pain 11/30/2015 Genital herpes 08/19/2011 DJD (degenerative joint disease) of knee 011 Encounters Date Type Department Care Team Description 08/19/2024 Telephone [facility] [address] [place] [address] Perry Oneil MD No Show 08/12/2024 1:30 PM EST Office Visit [facility] [address] [place] [address] Perry Oneil MD Chronic left-sided low back pain without sciatica (Primary Dx); Atypical chest pain; Elevated blood pressure reading 08/12/2024 Travel 08/09/2024 Orders Only GENERIC EXTERNAL DATA DEPARTMENT Provider, Generic External Data 08/07/2024 Telephone [facility] [address] [place] [address] Perry Oneil MD chartprep 08/02/2024 Patient Outreach [facility] [address] [place] [address] Perry Oneil MD Care Coordination (CHW outreach for SDOH housing search-referral completed ) 08/02/2024 Patient Outreach [facility] [address] [place] [address] Perry Oneil MD Pre-visit Planning (SDOH positive, Tobacco screening negative) from Last 3 Months Immunizations Name Administration [...] Description 11/26/2024 1:00 PM EDT Office Visit [facility] [address] [place] [address] Name, MD Perry [address] [place] [address] Health Maintenance Due Date Last Done Comments [...] METABOLIC PANEL Routine 08/09/2024 10:43 AM EST HEPATITIS C AB W/REFL TO [...] EST) Sodium 141 135 - 145 mmol/L [facility] Potassium 3.7 3.3 - 5.1 mmol/L [facility] Chloride 109(H) 96 - 108 mmol/L [facility] Carbon Dioxide 25 22 - 29 mmol/L [facility] Anion Gap 11(L) 12 - 20 [facility] Urea Nitrogen (BUN) 13 9 - 16 mg/dL [facility] Creatinine, Serum 0.72 0.5 - 1.4 mg/dL [facility] Estimated Glomerular Filt Rate >60 [facility] Comment:Chronic Kidney Disea se: Estimated GFR < 60 mL/min/[id number] Kidney Disease: Estimated GFR < 15 mL/min/1.73m2 Glucose 103 60 - 115 mg/dL [facility] Calcium 9.1 8.4 - 10.2 mg/dL [facility] 08/09/2024 10:4 3 AM EST 08/09/2024 1:14 PM EST us Generic External Data Provider LAB BLOOD ORDERAB LES Final Result [facility] [address] [place] [phone] * Hepatitis C Antibody with Reflex to HCV, RNA, Quantitative, Real-Time PCR (12/05/2023 10:18 AM EDT) Hepatitis C Antibody Nonreactive Nonreactive [facility] Comment:Antibodies to HCV no t detected; does not exclude early acuteHCV infection. Blood Venous blood specimen / Unknown 12/05/2023 10:18 AM EDT 12/05/2023 11:38 AM EDT us Perry Oneil MD LAB BLOOD ORDERABLES Final Resul t Performing Organization Address [facility]/[facility] Co de Phone Number [facility] [address] [place] [phone] * (ABNORMAL) Lipid Panel, Standard (12/05/2023 10:18 AM EDT) Triglycerides 83 <150 mg/dL [facility] Comment:Desirable Triglyceri de: less than 150 mg/dLBorderline High Triglyceride 150-199 mg/dLHigh Triglyceride: 200-499 mg/dLVery High Triglyceride: greater than or equal to 5OO mg/dL Cholesterol 180 <200 mg/dL [facility] Comment:Desirable Cholestero l: less than 200 mg/dLBorderline High Cholesterol: 200-239 mg/dLHigh Cholesterol: greater than 239 mg/dL LDL Cholesterol Calculated 112(H) <100 mg/dL [facility] Comment:Desirable LDL: less than 100 mg/dLNear Optimal/Above Optimal LDL: 110- 129 mg/dLBorderline High LDL: 130-159 mg/dLHigh LDL: 160-189 mg/dLVery High LDL: greater than or equal to 190 mg/dL HDL Cholesterol 52 >40 mg/dL [facility] Comment:Desirable HDL: great er than 40 mg/dL Note: This HDL assay may give artificially low results in patients with liver disease. Blood Venous blood specimen / Unknown 12/05/2023 10:18 AM EDT 12/05/2023 11:38 AM EDT us Perry Oneil MD LAB BLOOD ORDERABLES Final Resul t Performing Organization Address [facility] Co de Phone Number [facility] [address] [place] [phone] * Hm Colonoscopy (05/19/2016 4:01 PM EST) Colonoscopy Normal Normal Comment:repeat 05/2026 Perry Oneil MD HEALTH MAINTENANCE Final Result from Last 3 Months or Most Recently Relevant to Health Maintenance Insurance [employer] Care Teams Jumbo Operator Relationship Specialty Start Date End Date Name, MD Perry [address] [place] [phone] PCP - General Family Medicine 11/30/15
--- OUTSIDE RECORDS SUMMARY | 2024-09-25 15:05 | XMS_ITS | Clinical Summary ---
Author Organization [facility] Address [address] [place] [phone] Care Team Providers Care Gear Hobber Name Role Phone Name, Perry HENRY Primary Care Provider [phone] Surgical History Surgery Date Site/Laterality Comments TONSILLECTOMY PROCEDURE: HISTORICAL TONSILLECTOMY Family History Relation Name Status Comments Brother 1 Alive DM Brother 2 Alive Daughter Alive Father Alive High cholestero l Maternal Grandmother [place] at a ge 80. Mother Alive DM, [...] - 2023-2 5 season) 2024 Influenza Vaccine (Season Ended) 2025 RSV Immunization Adult Patie nts (1 - [...] age to complete this topic Care Teams Gear Hobber Relationship Specialty Start Date End Date Name, MD Perry [address] [place] [address] PCP - General 09/07/06
--- OUTSIDE RECORDS SUMMARY | 2024-09-25 15:06 | XMS_ITS | Patient Health Record ---
Author Organization [facility] Address [address] [facility] [address] [place] [address] Care Team Providers Care Family And Consumer Education Teacher Name Role Phone Shanice Cardenas Primary Care Provider Allergies No Known Allergies Reason For Referral No Information Plan Of Treatment No Information Insurance Providers Payer Name Payer Address Payer Phone Subscriber Number Group Number Insured Name Patient Relationship to Insured Coverage Start Date Coverage End Date [facility] [address] [place] [address] [phone] [id number] Rocco Kathleen Self - patient is the insured
== END 2024-09-25 13:04 | disposition home or self-care (01) ==
PROVIDERS: PCP Internal Medicine Geriatric Medicine; Visit Provider Registered Nurse Emergency
DX: M54.50 Low back pain, unspecified (principal); M54.16 Radiculopathy, lumbar region
CPT/HCPCS: 99024

== ENCOUNTER 2025-01-31 14:29 | Outpatient (AMB) | payer OTHER, SELFPAY ==
--- OUTSIDE RECORDS SUMMARY | 2025-01-31 14:31 | XMS_ITS | Clinical Summary ---
Author Organization [facility] [facility] Address [address] [place] [address] [address] [place] [address] Care Team Providers Care Roller Mechanic Name Role Phone Name, Perry HENRY Primary Care Provider [phone] Allergies No known active allergies Medications Blood Pressure kit Use twice a day [...] for muscle spasms. 90 tablet 5 Active atorvastatin (Lipitor) 20 MG tablet Take 1 tablet (20 mg) by mouth Once per day. 30 tablet 11 5 11/27/19 26 Active Active Problems Problem Noted Date Diagnosed Date High cholesterol 11/26/2024 History of colonoscopy 11/21/2022 Overview (11/21/2022): Normal for colon CA screening at [facility] with Dr Hood in 05/2016 Obstructive sleep apnea syndrome 06/14/2017 Acute low back pain 11/30/2015 Genital herpes 08/19/2011 DJD (degenerative joint disease) of knee 011 Encounters Date Type Department Care Team Description 01/16/2025 Telephone [facility] [address] [place] [address] Elise Suazo MA february recalls 12/09/2024 Telephone [facility] [address] [place] [address] Elise Suazo [place] Appointment Request 11/26/2024 1:00 PM EDT Office Visit [facility] [place] [address] Perry Oneil MD White coat syndrome without hypertension (Primary Dx); High cholesterol 11/26/2024 Travel 11/25/2024 Telephone [facility] [place] [address] Perry Oneil MD Chart Prep 11/24/2024 Travel from Last 3 Months Immunizations Immunization Administration Dates Next Due Moderna Covid-19 Vaccine [...] Answer Date Recorded Internet Access Q1 Yes 12/05/2024 Internet Access Q2 Not on file 12/05/2024 Sex and Gender Information Value Date Recorded Sex Assigned at Male 04/11/2022 10:29 AM EDT Legal Sex Male 10:29 AM EDT Gender Identity Male 04/11/2022 10:29 AM EDT Sexual Orientation Straight 04/11/2022 10 :29 AM EDT Last Filed Vital Signs Vital Sign Reading Time Taken Comments Blood Pressure 138/82 11/26/2024 1:04 PM EDT Pulse 74 11/26/2024 12:55 PM EDT Temperature 37.1 C (98.8 F) 11/26/2024 12:55 PM EDT Respiratory Rate 18 11/26/2024 12:55 PM EDT Oxygen Saturation 99% 11/26/2024 12:55 PM EDT Inhaled Oxygen Concentration - - Weight 96.7 kg (213 lb 3.2 oz) 11/26/2024 12:55 PM EDT Height 167.6 cm (5' 6 ) 11/26/2024 12:55 PM EDT Body Mass Index 34.41 11/26/2024 12:55 PM EDT Plan of Treatment Health Maintenance Due Date Last Done Comments CT Colonography 1965 FIT DNA/Cologuard 1965 FIT 1965 FOBT 1965 HIV Screening 1965 Sigmoidoscopy 1965 Alcohol/Substance Use Screening 1977 Hepatitis B Vaccines (1 of 3 - 19+ 3-dose series) 1984 Pneumococcal Vaccine: 50+ Years (1 of 1 - PCV) 2015 COVID-19 Vaccine (2023-2 5 season) 2024 04/24/2021, 10/07/2020, 09/09/2020 Depression Screening 12/04/2024 12/05/2023, 12/05/2023 Influenza Vaccine (#1) 2025 08/04/2024 SDOH Screening 08/02/2025 08/02/2024 Disability Screening 08/12/2025 08/12/2024 Tobacco Screening 11/26/2025 11/26/2024 DTaP/Tdap/Td Vaccines (3 - T d or [...] Procedure Name Priority Date/Time Associated Diagnosis Comments HEPATITIS C AB W/REFL TO HCV RNA, QN, PCR Routine 12/05/2023 10:18 AM EDT Need for hepatitis C screening test LIPID PANEL, STANDARD Routine 12/05/2023 10:18 AM EDT PE (physical exam), routine Screening for cholesterol level [facility] COLONOSCOPY Routine 05/19/2016 4:01 PM EST from Last 3 Months or Most Recently Relevant to Health Maintenance Results * Hepatitis C Antibody with Reflex to HCV, RNA, Quantitative, Real-Time PCR (12/05/2023 10:18 AM EDT) Hepatitis C Antibody Nonreactive Nonreactive [facility] Comment:Antibodies to HCV no t detected; does not exclude early acuteHCV infection. Blood Venous blood specimen / Unknown 12/05/2023 10:18 AM EDT 12/05/2023 11:38 AM EDT us Perry Oneil MD LAB BLOOD ORDERABLES Final Resul t Performing Organization Address [facility] de Phone Number [facility] [address] [place] [phone] * (ABNORMAL) Lipid Panel, Standard (12/05/2023 10:18 AM EDT) Triglycerides 83 <150 mg/dL [facility] Comment:Desirable Triglyceri de: less than 150 mg/dLBorderline High Triglyceride 150-199 mg/dLHigh Triglyceride: 200-499 mg/dLVery High Triglyceride: greater than or equal to 5OO mg/dL Cholesterol 180 <200 mg/dL [facility] Comment:Desirable Cholestero l: less than 200 mg/dLBorderline High Cholesterol: 200-239 mg/dLHigh Cholesterol: greater than 239 mg/dL LDL Cholesterol Calculated 112(H) <100 mg/dL [facility] Comment:Desirable LDL: less than 100 mg/dLNear Optimal/Above Optimal LDL: 110- 129 mg/dLBorderline High LDL: 130-159 mg/dLHigh LDL: 160-189 mg/dLVery High LDL: greater than or equal to 190 mg/dL HDL Cholesterol 52 >40 mg/dL [facility] Comment:Desirable HDL: great er than 40 mg/dL Note: This HDL assay may give artificially low results in patients with liver disease. Blood Venous blood specimen / Unknown 12/05/2023 10:18 AM EDT 12/05/2023 11:38 AM EDT us Perry Oneil MD LAB BLOOD ORDERABLES Final Resul t Performing Organization Address [facility] Co de Phone Number [facility] [address] [place] [phone] * Hm Colonoscopy (05/19/2016 4:01 PM EST) Colonoscopy Normal Normal Comment:repeat 05/2026 Perry Oneil MD HEALTH MAINTENANCE Final Result from Last 3 Months or Most Recently Relevant to Health Maintenance Insurance [employer] Care Teams Roller Mechanic Relationship Specialty Start Date End Date Name, MD Perry [address] [place] [phone] PCP - General Family Medicine 11/30/15
--- OUTSIDE RECORDS SUMMARY | 2025-01-31 14:31 | XMS_ITS | Patient Health Record ---
Author Organization [place] Address [address] [facility] [address] [place] [address] Care Team Providers Care Commissary Representative Name Role Phone Shanice Cardenas Primary Care Provider Allergies No Known Allergies Reason For Referral No Information Plan Of Treatment No Information Insurance Providers Payer Name Payer Address Payer Phone Subscriber Number Group Number Insured Name Patient Relationship to Insured Coverage Start Date Coverage End Date [facility] [address] [place] [address] [phone] [id number] Rocco Kathleen Self - patient is the insured
--- NOTE | 2025-01-31 14:41 | A.OFFVIS_ITS ---
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 The pain began approximately a week ago while the patient was watching TV and arose from a seated position, experiencing a sudden onset of discomfort. The pain is localized to the right side and worsens upon sitting for extended periods and then standing up, necessitating slow movements to alleviate discomfort. Previously, the patient experienced nerve pain that radiated down both legs, which was treated with a steroid injection last March, resulting in improvement. Currently, the patient denies any numbness, weakness, or tingling, indicating a change in the nature of the pain from nerve-related to muscular. - Onset: Approximately one week ago while rising from a seated position - Quality: Muscular pain, localized to the right side - Exacerbating factors: Sitting for extended periods, rising from a seated position - Relieving factors: Slow movements when standing up - Affect: Pain impacts daily activities, requiring slow movements - Analgesia: Cyclobenzaprine 10 mg, Methocarbamol 750 mg, Tylenol and ibuprofen - Adverse Effects: Grogginess from cyclobenzaprine - Activities of Daily Living: Pain affects ability to rise from sitting and walk normally - Aberrant Drug Related Behaviors: None reported [facility] Medical History Thrombosed external hemorrhoids Family History Mother Diabetes Father Diabetes Stroke Pacemaker Social History Alcohol intake: never Patient Tobacco Use Status: Never used Tobacco Review of Systems Const Details: - Musculoskeletal: Reports muscular pain in the right side, denies numbness, weakness, or tingling Physical Exam Exam Exam: General: awake, alert, oriented. Answers questions appropriately. Fully engaged in examination. Skin: warm, dry, intact HEENT: Normocephalic. Hearing intact. Cardiac: External chest normal in appearance. Respiratory: No cough, audible wheezing or stridor. Abdomen: without gross distension. MS: No obvious swelling or deformities. Able to transition from sit to stand unassisted. Ambulates with bilaterally normal heel strike and toe off Tenderness over right lumbar musculature Minimally tender over midline lumbar vertebrae lumbar paraspinal muscle SLR negative bilaterally Bilateral lower extremity strength 5/5 Neurological: Oriented to person, place, time and situation. Thought process intact. No gait abnormalities appreciated. Psychiatric: Appropriate mood and affect. Good judgment and insight. Vital Signs: Last Vital Signs Pulse 73 01/31/25 14:42 Resp 16 01/31/25 14:42 BP 154/88 H 01/31/25 14:42 Pulse Ox 97 01/31/25 14:42 Oxygen Delivery Method Room Air 01/31/25 14:42 BMI result Body Mass Index 33.9 Results Reviewed Results Reviewed: 12/29/23 MRI of the lumbar spine FINDINGS: There are 5 nonrib-bearing lumbar-type vertebrae. Rudimentary disc at S1-2. Mild retrolisthesis at L5-S1. The vertebral body heights are preserved. Multilevel disc desiccation with severe disc height loss at L5-S1. Subacute endplate changes at L5-S1. Multilevel endplate osteophytosis. The visualized spinal cord is normal in caliber. No abnormal cord signal. The conus medullaris terminates at L1. T12-L1: No significant spinal canal or neural foraminal narrowing. L1-2: No significant spinal canal or neural foraminal narrowing. L2-3: No significant spinal canal or neural foraminal narrowing. L3-4: Bilateral facet arthrosis. No significant spinal canal or neural foraminal narrowing. Small right perineural cyst. L4-5: Diffuse disc bulge with superimposed annular fissure. Bilateral facet arthrosis. No significant spinal canal stenosis. Mild bilateral neural foraminal narrowing with the disc abutting the exiting L4 nerve roots bilaterally. L5-S1: Diffuse disc bulge with superimposed shallow left paracentral disc protrusion. No significant spinal canal stenosis. Mild to moderate right greater than left neural foraminal narrowing with the disc abutting the exiting L5 nerve roots. The paravertebral soft tissues are unremarkable. MR/MR lumbar spine wo con IMPRESSION: -Mild retrolisthesis at L5-S1 with severe disc height loss and subacute endplate changes. -No significant spinal canal stenosis. -Mild to moderate bilateral neural foraminal narrowing at L4-L5 and L5-S1 with the disc abutting the exiting L4 and L5 nerve roots. -Annular fissure at L4-5. 12/25/23 IMPRESSION: * Grade 1 retrolisthesis of L5 on S1 with associated severe degenerative disc disease. * Mild degenerative disc disease at L4-L5. * Moderate facet arthropathy in mid and lower lumbar spine. Assessment & Plan Assessment & Plan (1) Spondylosis of lumbar region without myelopathy or radiculopathy: Code(s): M47.816 - Spondylosis without myelopathy or radiculopathy, lumbar region Category: Medical (2) Lower back pain: Code(s): M54.50 - Low back pain, unspecified Category: Medical (3) Lumbar radiculopathy: Code(s): M54.16 - Radiculopathy, lumbar region Category: Medical Plan The plan includes initiating a short course of prednisone to reduce inflammation and alleviate the pain on the right side. The patient is advised to continue with home exercises and stretches previously provided by physical therapy to maintain mobility and prevent further discomfort. If symptoms persist, consideration for a repeat steroid injection may be warranted, given the previous positive response. Additionally, the use of lidocaine patches is recommended for localized pain relief, with a prescription to be sent if covered by insurance. The patient is instructed to avoid NSAIDs while on prednisone and to use methocarbamol at night to manage muscle spasms without the grogginess associated with cyclobenzaprine. An x-ray will be ordered to rule out any underlying structural issues. Patient was informed and verbally consented to the use of an ambient scribe for clinic note documentation during this visit. Orders: Orders XR lumbar spine 6V w bending Today M47.816 - Spondylosis without myelopathy or radiculopathy, lumbar region, M54.50 - Low back pain, unspecified Medications: New lidocaine 5% leave on most painful area for up to 12 hrs 1 patch topical DAILY 30 ea 3RF Refilled prednisone 40mg once daily for 5 days 40 mg (2 x 20 mg) PO DAILY 10 tabs 0RF 5 days Patient Instructions: - Take prednisone as prescribed to reduce inflammation. - Continue home exercises and stretches to maintain mobility. - Use lidocaine patches for localized pain relief if covered by insurance. - Avoid NSAIDs while taking prednisone. - Use methocarbamol at night to manage muscle spasms. - Complete x-ray Coding Level of Care Code Est Pt Level 3 (79763) Complex EM visit Add On G2211 Diagnoses Spondylosis of lumbar region without myelopathy or radiculopathy M47.816 Lower back pain M54.50 Lumbar radiculopathy M54.16
[2025-01-31 14:42] VITALS: BP 154/88; PULSE 73; RESP 16; O2SAT 97; BMI 33.9
== END 2025-01-31 14:56 | disposition home or self-care (01) ==
LOC: HO.PMC 14:29
PROVIDERS: PCP Internal Medicine Geriatric Medicine; Visit Provider Registered Nurse Emergency
DX: M47.816 Spondylosis without myelopathy or radiculopathy, lumbar region (principal); M54.50 Low back pain, unspecified; M54.16 Radiculopathy, lumbar region
CPT/HCPCS: 99213

== ENCOUNTER 2025-05-02 09:32 | Outpatient (REF) | payer OTHER, SELFPAY ==
--- OUTSIDE RECORDS SUMMARY | 2025-05-02 10:06 | XMS_ITS | Clinical Summary ---
Author Organization [employer] Address [address] [place] [address] [address] [place] [address] Care Team Providers Care Skiing Instructor Name Role Phone Name, Perry HENRY Primary Care Provider [phone] Allergies No known active allergies Medications Blood [...] (11/21/2022): Normal for colon CA screening at [facility] with Dr Hood in 05/2016 Obstructive sleep apnea syndrome 06/14/2017 Acute low back pain 11/30/2015 Genital herpes 08/19/2011 DJD (degenerative joint disease) of knee 011 Encounters Date Type Department Care Team Description 04/07/[address] [facility] [address] [place] [address] Name, MD Perry Screening for prostate cancer (Primary Dx) 03/04/2025 Telephone [facility] [address] [place] [address] Name, MD JORGE Amador RECALL from Last 3 Months Immunizations Immunization Administration Dates Next Due Sybil Covid-19 Vaccine 12+ 04/24/2021,10/08/19 21,09/09/2020 Tdap 04/22/2016,10/06/2006 [...] 11/26/2024 12:55 PM EDT Plan of Treatment Upcoming Encounters Date Type Department Care Team (Late st Contact Info) Description 05/21/2025 10:00 AM EST Office Visit [facility] [address] [place] [address] Name, MD Perry [address] [place] [address] Health Maintenance Due Date Last Done Comments CT Colonography 1965 FIT DNA/Cologuard 1965 FIT 1965 FOBT 1965 HIV Screening 1965 Sigmoidoscopy 1965 Alcohol/Substance Use Screening 1977 Hepatitis B Vaccines (1 of 3 - 19+ 3-dose series) 1984 Pneumococcal Vaccine: 50+ Years (1 of 1 - PCV) 2015 Depression Screening 12/04/2024 12/05/2023, 12/05/2023 COVID-19 Vaccine (4 - 2024-2 6 season) 2025 04/24/2021, 10/07/2020, 09/09/2020 Influenza Vaccine (#1) 2025 08/04/2024 SDOH Screening [...] AM EDT) Hepatitis C Antibody Nonreactive Nonreactive [facility] Comment:Antibodies to HCV no t detected; does not exclude early acuteHCV infection. Blood Venous blood specimen / Unknown 12/05/2023 10:18 AM EDT 12/05/2023 11:38 AM EDT us Perry Oneil MD LAB BLOOD ORDERABLES Final Resul t Performing Organization Address [facility] Phone Number [facility] [address] [place] [phone] * (ABNORMAL) Lipid Panel, Standard (12/05/2023 10:18 AM EDT) Triglycerides 83 <150 mg/dL [facility] Comment:Desirable Triglyceri de: less than 150 mg/dLBorderline High Triglyceride 150-199 mg/dLHigh Triglyceride: 200-499 mg/dLVery High Triglyceride: greater than or equal to 5OO mg/dL Cholesterol 180 <200 mg/dL [facility] Comment:Desirable Cholestero l: less than 200 mg/dLBorderline High Cholesterol: 200-239 mg/dLHigh Cholesterol: greater than 239 mg/dL LDL Cholesterol Calculated 112(H) <100 mg/dL [facility] Comment:Desirable LDL: less than 100 mg/dLNear Optimal/Above Optimal LDL: 110- 129 mg/dLBorderline High LDL: 130-159 mg/dLHigh LDL: 160-189 mg/dLVery High LDL: greater than or equal to 190 mg/dL HDL Cholesterol 52 >40 mg/dL [facility] Comment:Desirable HDL: great er than 40 mg/dL Note: This HDL assay may give artificially low results in patients with liver disease. Blood Venous blood specimen / Unknown 12/05/2023 10:18 AM EDT 12/05/2023 11:38 AM EDT us Perry Oneil MD LAB BLOOD ORDERABLES Final Resul t Performing Organization Address [facility] Co de Phone Number [facility] [address] [place] [phone] * Hm Colonoscopy (05/19/2016 4:01 PM EST) Colonoscopy Normal Normal Comment:repeat 05/2026 us Perry Oneil MD HEALTH MAINTENANCE Final Result from Last 3 Months or Most Recently Relevant to Health Maintenance Insurance [employer] Care Teams Skiing Instructor Relationship Specialty Start Date End Date Name, MD Perry [address] [place] [phone] PCP - General Family Medicine 11/30/15
--- OUTSIDE RECORDS SUMMARY | 2025-05-02 10:06 | XMS_ITS | Clinical Summary ---
Author Organization [facility] [employer] [facility] Address [address] [place] [phone] Care Team Providers Care Coloring Machine Operator Name Role Phone Name, Perry HENRY Primary Care Provider [phone] Surgical History Surgery Date Site/Laterality Comments TONSILLECTOMY PROCEDURE: HISTORICAL TONSILLECTOMY Family History Relation Name Status Comments Brother 1 Alive DM Brother 2 Alive Daughter Alive Father Alive High cholestero l Maternal Grandmother OK at a ge 80. Mother Alive DM, [...] (2 - Td or Tdap) 10/06/2016 10/06/2006 Depression Screening 06/12/2024 COVID-19 Vaccine (1 - 2024-2 6 season) 2025 Influenza Vaccine (#1) 2025 RSV Immunization Adult Patie nts (1 [...] age to complete this topic Care Teams Coloring Machine Operator Relationship Specialty Start Date End Date Name, MD Perry [address] [place] [address] PCP - General 09/07/06
--- OUTSIDE RECORDS SUMMARY | 2025-05-02 10:07 | XMS_ITS | Patient Health Record ---
Author Organization [place] Address [address] [facility] [address] [place] [address] Care Team Providers Care Repairer And Checker Name Role Phone Shanice Cardenas Primary Care Provider Allergies No Known Allergies Reason For Referral No Information Plan Of Treatment No Information Insurance Providers Payer Name Payer Address Payer Phone Subscriber Number Group Number Insured Name Patient Relationship to Insured Coverage Start Date Coverage End Date [facility] [address] [place] [phone] [id number] Rocco Kathleen Self - patient is the insured
[2025-05-02 13:06] LABS: Prostate Specific Antigen 0.44 ng/mL (<0.05-4.0)
[2025-05-02 13:14] LABS: Alanine Aminotransferase 39 U/L (0-40); Albumin Level 4.8 g/dL (3.5-5.0); Alkaline Phosphatase 86 U/L (39-117); Anion Gap 11 (12-20); Aspartate Amino Transferase 32 U/L (5-37); Blood Urea Nitrogen 18 mg/dL (9-16); Calcium 9.3 mg/dL (8.4-10.2); Carbon Dioxide 29 mmol/L (22-29); Chloride 107 mmol/L (96-108); Cholesterol 181 mg/dL (<200); Estimated Glomerular Filt Rate > 60; HDL Cholesterol 49 mg/dL (>40); Potassium 4.5 mmol/L (3.3-5.1); Sodium 142 mmol/L (135-145); Total Protein 7.4 g/dL (6.5-8.0); Triglycerides 132 mg/dL (<150)
== END 2025-05-02 09:33 | disposition home or self-care (01) ==
LOC: HO.HHCL 09:32
PROVIDERS: PCP Internal Medicine Geriatric Medicine; Visit Provider Internal Medicine Geriatric Medicine
DX: Z12.5 Encounter for screening for malignant neoplasm of prostate (principal); R03.0 Elevated blood-pressure reading, without diagnosis of hypertension; E78.00 Pure hypercholesterolemia, unspecified
CPT/HCPCS: 36415; 80053; 80061; 84153